=== PATIENT | male | born 1995 | race Two or more races ===

== ENCOUNTER 2020-05-01 14:07 | Outpatient (REF) | payer OTHER, SELFPAY | END 2020-05-01 14:08 | disposition home or self-care (01) | LOC: HO.LAB 14:07 | PROVIDERS: Visit Provider Internal Medicine | DX: Z20.828 Contact with and (suspected) exposure to other viral communicable diseases (principal) | CPT/HCPCS: C9803; U0003 ==

== ENCOUNTER 2020-05-08 12:43 | Emergency (ER) | payer OTHER, SELFPAY ==
[2020-05-08 12:55] VITALS: BP 108/53; BP 116/62; PULSE 88; PULSE 93; RESP 17; TEMP 36.8; O2SAT 95; BMI 24.5
--- NOTE | 2020-05-08 13:02 | XR_ITS ---
EXAMINATION: XR FINGER, RIGHT CLINICAL INFORMATION: Swelling and pain right ring finger. Recent surgery with pinning. COMPARISON: Radiographs right hand and fourth finger 07/02/2010. TECHNIQUE: AP view right hand and 2 views of the right fourth finger are obtained for a total of 3 views. The fingers are superimposed on the lateral view. FINDINGS: There are 2 orthopedic pins longitudinally oriented along the fourth finger proximal phalanx. There is comminuted fracture transversely oriented proximal shaft and a longitudinal fracture medial head/neck. Major fracture fragments are in near-anatomic alignment. There is soft tissue swelling fourth digit. No gas tracking in the soft tissues. The hardware is intact. There is no destructive process or osteolysis or periostitis. There is no dislocation. XR/XR finger RT min 2V IMPRESSION: 1. Status post pinning fourth proximal phalanx comminuted fractures. 2. Soft tissue swelling. No gas in soft tissues. No bony destructive process.
--- NOTE | 2020-05-08 13:35 | ED.GENADULT ---
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 [place]... Adderall patient with similar type behavior on the previous visits. On arrival acting very restless but he is alert and oriented x3. He denies any chest pain, shortness of breath, recent illness, fall or injury. Upon my interview he does show me that he has a surgical area in the right ring finger where he has percutaneous pinning with erythema and slight swelling. He otherwise denies any fever or chills hand swelling or discharge from the area. He reports to me that he had surgery on the finger a week ago at [facility]. Onset (ago): hour(s) Radiation: non-radiation Severity: moderate Treatments prior to arrival: none Related Data Previous Rx's Medication Instructions Recorded sulfamethoxazole-trimethoprim 2 tab PO BID 7 Days #28 tab 05/08/20 [Bactrim DS] Allergies Allergy/AdvReac Type Severity Reaction Status Date / Time No Known Allergies Allergy Unverified 03/14/20 16:27 Review of Systems Review of Systems: Constitutional: No Weight loss, No Fever, No Chills, No Night Sweats, No Fatigue, No Malaise ENT/Mouth: No Hearing loss, No Ear Pain, No Nasal Congestion, No Sinus Pain, No Hoarseness, No sore throat, No Rhinorrhea, No Swallowing Difficulty Eyes: No Eye Pain, No Swelling, No Redness, No Foreign Body, No Discharge, No Vision Changes Cardiovascular: No Chest Pain, No SOB, No Dyspnea on Exertion, No Orthopnea, No Edema, No Palpitations Respiratory: No Cough, No Sputum, No Wheezing, No Smoke Exposure, No Dyspnea Gastrointestinal: No Nausea, No Vomiting, No Diarrhea, No Constipation, No abdominal Pain, No Hematochezia, No Melena Genitourinary: no irregular bleeding, No Dysuria, No Urinary Frequency, No Hematuria, No Urinary Incontinence, No Urgency, No Flank Pain, No Urinary Flow Changes, No Hesitancy Musculoskeletal: No joint pain, No Myalgias, No Joint Swelling Skin: No Skin Lesions, No rash, As noted Neuro: No Weakness, No Numbness, No Paresthesias, No Loss of Consciousness, No Dizziness, No Headache Psych: No Anxiety/Panic, No Depression, No SI/HI/AH/VH, No Social Issues Heme/Lymph: No Bruising, No Bleeding,No Lymphadenopathy Endocrine: No Polyuria, No Polydipsia, No Temperature Intolerance Yes all other systems are reviewed and are negative [facility] Past Medical History Source: old records reviewed ( ) Medical History (Updated 05/08/20 @ 15:36 by Vincent Torres NP) Polysubstance dependence including opioid type drug, continuous use Surgical History Finger fracture, right Social History Social History Advance Directives: No Advance Directives Information Provided: No Physical Exam Vital Signs: Vital Signs: Last Vital Signs Temp 98.2 F 05/08/20 12:55 Pulse 93 05/08/20 12:55 Resp 17 05/08/20 12:55 BP 108/53 L 05/08/20 12:55 Pulse Ox 95 05/08/20 12:55 Body Mass Index 24.5 Reviewed Const: General: cooperative and healthy appearing; No acute distress or intoxicated appearing Nutritional Appearance: average body habitus Orientation/consciousness: patient oriented x3 HENMT: Head: Yes normal to inspection Ears: hearing grossly normal bilaterally Eyes: General: appearance normal, both eyes and all related structures Visual Francis: normal visual francis by confrontation Neck: Neck: Yes normal visual inspection, No positive Brudzinski's sign, No positive Kernig's sign and No tender Thyroid: Thyroid normal Chest: Chest palpation & inspection: normal inspection of the chest Resp: Effort & Inspection: normal respiratory effort Cardio: Jugular venous distension: no JVD GI: Inspection: Yes normal to inspection Percussion: Yes normal to percussion Auscultation: normal bowel sounds : General: Yes no CVA tenderness Back/Spine/Pelvis: Back: no CVA tenderness Skin: Other: slight diaphoretic General skin exam: no rashes or lesions noted Neuro: General: patient oriented x3 Extrem: Other: General: Yes normal to inspection Course Course Course Narrative: records requested from [facility]- there was no records there upon further investigation it appears that patient was seen and evaluated at [facility] on April 21 where he was evaluated for fracture to the right 4th proximal phalanx subsequently on the April 26 he had surgical repair of his right 4th digit proximal phalanx fracture with percutaneous pinning by Dr. Wilson at [facility]. Call placed to [facility] ortho Reevaluation(s) Reevaluation #1: [facility] orthopedics here [facility] covering- given recent surgical case defer to service that performed surgery. Reevaluation #2: [address] Baker [address] Dr. Wilson [facility] ORtho findings reviewed including x-ray findings / labs. Patient has had compliance issues was actually seen on the in the emergency room at [facility] and prescribed Keflex advised to follow up in 2 days has not done so at this point Dr. Baker recommends no transfer to start patient on Bactrim DS 2 tablets b.i.d. clean the percutaneous pin site with Betadine around the pin site and covered with dry sterile dressing with a lumen splint on the palmar aspect and resting position. Follow-up in office tomorrow morning or Wednesday. Reevaluation #3: has been resting comfortably no longer erratically behavior which was upon arrival. Labs show slightly elevated renal function tests he was given a L of fluids. Findings/plan was reviewed with the patient he will be placed on Bactrim as per request of ortho, wound care done to the right 4th finger and placed in a splint with dry sterile dressing. He was advised to follow-up with orthopedics tomorrow and the importance of this and complication of having poor compliance with antibiotics and for follow-up which can lead to not only localized infection and amputation of the digit but systemic infection including but not limited to . Additional Reevaluation(s): PATIENT OBSERVED IN THE ED HAS BEEN CALM COOPERATIVE. GIVEN DOSE OF ANTIBIOTICS HERE. PRESCRIPTION OF BACTRIM SENT TO PHARMACY WELL HE HAS KEFLEX AT HOME HE WILL CONTINUE BOTH OF THESE HE IS STRONGLY ENCOURAGED TO SEE ORTHOPEDICS TOMORROW CALL FOR AN APPOINTMENT. AGAIN COMPLICATIONS OF HAVING WOUND INFECTION AT THE SURGICAL SITE REVIEWED WITH HIM IN DETAIL AND HE VERBALIZED UNDERSTANDING. DECLINED TO SPEAK TO ANYBODY REGARDING DETOX SERVICES. Medical Decision Making Lab Data Result diagrams: 05/08/20 13:49 05/08/20 13:49 Labs: Lab Results 05/08/20 05/08/20 05/08/20 Range/Units 13:47 13:48 13:48 WBC (4.8-10.8) X10*3/uL RBC (4.60-5.80) X10*6/uL Hgb (14.0-18.0) g/dl Hct (42-52) % MCV (80-98) fL MCH (27.0-33.0) pg MCHC (31.0-36.0) g/dl RDW (11.0-16.0) % Plt Count (160-400) X10*3/uL MPV (9.4-12.4) fL Immature Gran % (Auto) (0.0-0.4) % Neut % (Auto) (45-73) % Lymph % (Auto) (20-40) % [place] % (Auto) (2-11) % Eos % (Auto) (0-4) % Baso % (Auto) (0-2) % Lymph # (Auto) (1.2-4.9) X10*3/uL [place] # (Auto) (0.1-1.2) X10*3/uL Eos # (Auto) (0.0-0.4) X10*3/uL Baso # (Auto) (0.0-0.2) X10*3/uL Abs Immat Gran (auto) (0.00-0.03) X10*3/uL Absolute Neuts (auto) (2.0-8.3) X10*3/uL Absolute Nucleated RBC (0.0-0.012) X10*3/uL Nucleated RBC % (auto) (0.0-0.2) /100WBC PT (10.8-13.0) SEC INR (0.9-1.1) APTT (24.1-38.0) SEC Sodium (135-145) mmol/L Potassium (3.3-5.1) mmol/l Chloride (96-108) mmol/L Carbon Dioxide (22-29) mmol/L Anion Gap (12-20) BUN (9-16) mg/dL Creatinine (0.5-1.4) mg/dL Estim Creat Clear Calc Estimated GFR Random Glucose (60-115) mg/dL Lactic Acid 1.1 (0.5-2.0) mmol/L Calcium (8.4-10.2) mg/dL Total Bilirubin (0.0-1.0) mg/dL AST (5-37) U/L ALT (0-40) U/L Alkaline Phosphatase (39-117) U/L Total Protein (6.5-8.0) g/dL Albumin (3.5-5.0) g/dL Urine Color Urine Appearance Urine pH (5.0-8.0) Ur Specific [place] (1.005-1.025) Urine Protein (NEG-TRACE) MG/DL Urine Glucose (UA) (NEG) MG/DL Urine Ketones (NEG) MG/DL Urine Blood (NEG) Urine Nitrite (NEG) Ur Leukocyte Esterase (NEG) Urine RBC (0) /HPF Urine WBC (0-4) /HPF Ur Squamous Epith Cells /LPF Urine Bacteria /LPF Hyaline Casts /LPF Urine Mucus /LPF Urine Opiates Screen Not Detected (Not Detect) Ur Barbiturates Screen Not Detected (Not Detect) Ur Phencyclidine Scrn Not Detected (Not Detect) Ur Amphetamines Screen Not Detected (Not Detect) U Benzodiazepines Scrn Not Detected (Not Detect) Urine Cocaine Screen Not Detected (Not Detect) U Marijuana (THC) Screen POSITIVE H (Not Detect) Ethyl Alcohol < 10 mg/dL 05/08/20 05/08/20 05/08/20 Range/Units 13:49 13:49 13:49 WBC 9.9 (4.8-10.8) X10*3/uL RBC 4.37 L (4.60-5.80) X10*6/uL Hgb 12.9 L (14.0-18.0) g/dl Hct 38.4 L (42-52) % MCV 87.9 (80-98) fL MCH 29.5 (27.0-33.0) pg MCHC 33.6 (31.0-36.0) g/dl RDW 11.9 (11.0-16.0) % Plt Count 261 (160-400) X10*3/uL MPV 9.9 (9.4-12.4) fL Immature Gran % (Auto) 0.3 (0.0-0.4) % Neut % (Auto) 74.7 H (45-73) % Lymph % (Auto) 18.6 L (20-40) % [place] % (Auto) 5.6 (2-11) % Eos % (Auto) 0.3 (0-4) % Baso % (Auto) 0.5 (0-2) % Lymph # (Auto) 1.9 (1.2-4.9) X10*3/uL [place] # (Auto) 0.6 (0.1-1.2) X10*3/uL Eos # (Auto) 0.0 (0.0-0.4) X10*3/uL Baso # (Auto) 0.1 (0.0-0.2) X10*3/uL Abs Immat Gran (auto) 0.03 (0.00-0.03) X10*3/uL Absolute Neuts (auto) 7.4 (2.0-8.3) X10*3/uL Absolute Nucleated RBC 0.000 (0.0-0.012) X10*3/uL Nucleated RBC % (auto) 0.0 (0.0-0.2) /100WBC PT 14.8 H (10.8-13.0) SEC INR 1.2 H (0.9-1.1) APTT 30.0 (24.1-38.0) SEC Sodium 136 (135-145) mmol/L Potassium 4.2 (3.3-5.1) mmol/l Chloride 99 (96-108) mmol/L Carbon Dioxide 23 (22-29) mmol/L Anion Gap 18 (12-20) BUN 22 H (9-16) mg/dL Creatinine 1.44 H (0.5-1.4) mg/dL Estim Creat Clear Calc 82.7 Estimated GFR 59 Random Glucose 87 (60-115) mg/dL Lactic Acid (0.5-2.0) mmol/L Calcium 9.0 (8.4-10.2) mg/dL Total Bilirubin 0.6 (0.0-1.0) mg/dL AST 33 (5-37) U/L ALT 18 (0-40) U/L Alkaline Phosphatase 67 (39-117) U/L Total Protein 7.4 (6.5-8.0) g/dL Albumin 4.6 (3.5-5.0) g/dL Urine Color Urine Appearance Urine pH (5.0-8.0) Ur Specific [place] (1.005-1.025) Urine Protein (NEG-TRACE) MG/DL Urine Glucose (UA) (NEG) MG/DL Urine Ketones (NEG) MG/DL Urine Blood (NEG) Urine Nitrite (NEG) Ur Leukocyte Esterase (NEG) Urine RBC (0) /HPF Urine WBC (0-4) /HPF Ur Squamous Epith Cells /LPF Urine Bacteria /LPF Hyaline Casts /LPF Urine Mucus /LPF Urine Opiates Screen (Not Detect) Ur Barbiturates Screen (Not Detect) Ur Phencyclidine Scrn (Not Detect) Ur Amphetamines Screen (Not Detect) U Benzodiazepines Scrn (Not Detect) Urine Cocaine Screen (Not Detect) U Marijuana (THC) Screen (Not Detect) Ethyl Alcohol mg/dL 05/08/20 Range/Units 13:50 WBC (4.8-10.8) X10*3/uL RBC (4.60-5.80) X10*6/uL Hgb (14.0-18.0) g/dl Hct (42-52) % MCV (80-98) fL MCH (27.0-33.0) pg MCHC (31.0-36.0) g/dl RDW (11.0-16.0) % Plt Count (160-400) X10*3/uL MPV (9.4-12.4) fL Immature Gran % (Auto) (0.0-0.4) % Neut % (Auto) (45-73) % Lymph % (Auto) (20-40) % [place] % (Auto) (2-11) % Eos % (Auto) (0-4) % Baso % (Auto) (0-2) % Lymph # (Auto) (1.2-4.9) X10*3/uL [place] # (Auto) (0.1-1.2) X10*3/uL Eos # (Auto) (0.0-0.4) X10*3/uL Baso # (Auto) (0.0-0.2) X10*3/uL Abs Immat Gran (auto) (0.00-0.03) X10*3/uL Absolute Neuts (auto) (2.0-8.3) X10*3/uL Absolute Nucleated RBC (0.0-0.012) X10*3/uL Nucleated RBC % (auto) (0.0-0.2) /100WBC PT (10.8-13.0) SEC INR (0.9-1.1) APTT (24.1-38.0) SEC Sodium (135-145) mmol/L Potassium (3.3-5.1) mmol/l Chloride (96-108) mmol/L Carbon Dioxide (22-29) mmol/L Anion Gap (12-20) BUN (9-16) mg/dL Creatinine (0.5-1.4) mg/dL Estim Creat Clear Calc Estimated GFR Random Glucose (60-115) mg/dL Lactic Acid (0.5-2.0) mmol/L Calcium (8.4-10.2) mg/dL Total Bilirubin (0.0-1.0) mg/dL AST (5-37) U/L ALT (0-40) U/L Alkaline Phosphatase (39-117) U/L Total Protein (6.5-8.0) g/dL Albumin (3.5-5.0) g/dL Urine Color YELLOW Urine Appearance CLEAR Urine pH 5.5 (5.0-8.0) Ur Specific [place] >= 1.030 H (1.005-1.025) Urine Protein NEG (NEG-TRACE) MG/DL Urine Glucose (UA) NEG (NEG) MG/DL Urine Ketones 15 (NEG) MG/DL Urine Blood TRACE (NEG) Urine Nitrite NEG (NEG) Ur Leukocyte Esterase NEG (NEG) Urine RBC 0-2 (0) /HPF Urine WBC 0-2 (0-4) /HPF Ur Squamous Epith Cells NONE /LPF Urine Bacteria NONE /LPF Hyaline Casts 0-2 /LPF Urine Mucus TRACE /LPF Urine Opiates Screen (Not Detect) Ur Barbiturates Screen (Not Detect) Ur Phencyclidine Scrn (Not Detect) Ur Amphetamines Screen (Not Detect) U Benzodiazepines Scrn (Not Detect) Urine Cocaine Screen (Not Detect) U Marijuana (THC) Screen (Not Detect) Ethyl Alcohol mg/dL Imaging Data Hand xray : Radiologist's impression: [id number] [place] [address] XRay Report Signed Patient: Anuj AbarcaMR#: [id number] : 1995Acct:[id number] Age/Sex: 24 / MADM Date: 05/08/20 Loc: HO.ED Attending Dr: Ordering Physician: Vincent Torres NP Date of Service: 05/08/20 Procedure(s): XR finger RT min 2V Accession Number(s): [id number] cc: Vincent Torres [employer]~ EXAMINATION: XR FINGER, RIGHT CLINICAL INFORMATION: Swelling and pain right ring finger. Recent surgery with pinning. COMPARISON: Radiographs right hand and fourth finger 07/02/2010. TECHNIQUE: AP view right hand and 2 views of the right fourth finger are obtained for a total of 3 views. The fingers are superimposed on the lateral view. FINDINGS: There are 2 orthopedic pins longitudinally oriented along the fourth finger proximal phalanx. There is comminuted fracture transversely oriented proximal shaft and a longitudinal fracture medial head/neck. Major fracture fragments are in near-anatomic alignment. There is soft tissue swelling fourth digit. No gas tracking in the soft tissues. The hardware is intact. There is no destructive process or osteolysis or periostitis. There is no dislocation. XR/XR finger RT min 2V IMPRESSION: 1. Status post pinning fourth proximal phalanx comminuted fractures. 2. Soft tissue swelling. No gas in soft tissues. No bony destructive process. Dictated By:THU PANCHAL MD Signed By:<Electronically signed by THU PANCHAL MD in OV>05/08/20 1351 DD/ 1302 TD/TT: [place] [employer] [place]: ROONE[place] Discharge Plan Discharge Clinical Impression: Polysubstance dependence including opioid type drug, continuous use Infection of superficial incisional surgical site after procedure Qualifiers: Encounter type: initial encounter Qualified Code(s): T81.41XA - Infection following a procedure, superficial incisional surgical site, initial encounter Patient Disposition: Home, Self-Care Instructions: Surgical Site Infections (ED), Polysubstance Abuse (ED) Additional Instructions: please stop using illicit drugs as this can cause serious harm to health including but not limited to As it relates to your right 4th finger you have an infection at the surgical site- please take your antibiotic as prescribed Keep site clean and dry worry splint as provided Please go see orthopedic doctors at [facility] tomorrow call for an appointment with Dr. Baker return if any concerns or worsening symptoms Thank you ++++CALL FOR FOLLOW UP TOMORROW+++ [facility] Dr. Baker [facility] Prescriptions: New sulfamethoxazole-trimethoprim [Bactrim DS] 800-160 mg tablet 2 tab PO BID 7 Days Qty: 28 RF: 0 Referrals: Edmond Dey MD [Primary Care Provider] - 3 days
[2020-05-08] MEDS: 0.9 % Sodium Chloride 1,000 ML 1000 ML IV (13:52)
[2020-05-08 13:55] LABS: MANUAL DIFF FLAG NO
[2020-05-08 13:57] LABS: Basophils Absolute Auto 0.1 X10*3/uL (0.0-0.2); Basophils Percent Auto 0.5 % (0-2); Eosinophils Percent Auto 0.3 % (0-4); Hematocrit 38.4 % (42-52); Hemoglobin 12.9 g/dl (14.0-18.0); Imm Gran Abs Auto 0.03 X10*3/uL (0.00-0.03); Imm Gran Pct Auto 0.3 % (0.0-0.4); Lymphocytes Absolute Auto 1.9 X10*3/uL (1.2-4.9); Lymphocytes Percent Auto 18.6 % (20-40); Mean Corpuscular HGB Conc 33.6 g/dl (31.0-36.0); Mean Corpuscular Hemoglobin 29.5 pg (27.0-33.0); Mean Corpuscular Volume 87.9 fL (80-98); Mean Platelet Volume 9.9 fL (9.4-12.4); Monocytes Absolute Auto 0.6 X10*3/uL (0.1-1.2); Monocytes Percent Auto 5.6 % (2-11); Neutrophils Absolute Auto 7.4 X10*3/uL (2.0-8.3); Neutrophils Percent Auto 74.7 % (45-73); Platelet Count 261 X10*3/uL (160-400); Red Blood Count 4.37 X10*6/uL (4.60-5.80); Red Cell Distribution Width 11.9 % (11.0-16.0); White Blood Count 9.9 X10*3/uL (4.8-10.8)
[2020-05-08 14:00] LABS: Glucose Urine UA NEG (NEG); Leukocyte Esterase Urine NEG (NEG); Nitrite Urine NEG (NEG); PH 5.5 (5.0-8.0); Specific Gravity - Urine >= 1.030 (1.005-1.025); Urine Blood TRACE (NEG); Urine Ketones 15 MG/DL (NEG); Urine Protein NEG (NEG-TRACE)
[2020-05-08 14:01] LABS: Appearance Urine CLEAR; Color Urine YELLOW
[2020-05-08 14:02] LABS: INTERNATIONAL NORM RATIO 1.2 (0.9-1.1); Prothrombin Time 14.8 SEC (10.8-13.0)
[2020-05-08 14:14] LABS: Hyaline Casts Urine 0-2 /LPF; Mucus Urine TRACE /LPF; RBC Urine 0-2 /HPF (0); WBC Urine 0-2 /HPF (0-4)
[2020-05-08 14:22] LABS: Lactic Acid 1.1 mmol/L (0.5-2.0)
[2020-05-08 14:26] LABS: Ethanol < 10 mg/dL
[2020-05-08 14:29] LABS: Amphetamine Screen Urine Not Detected (Not Detect); Barbiturates, Urine Not Detected (Not Detect); Benzodiazepines Screen Urine Not Detected (Not Detect); Cannabinoid Screen Urine POSITIVE (Not Detect); Cocaine Screen Urine Not Detected (Not Detect); Opiate Screen Urine Not Detected (Not Detect); Phencyclidine Screen Urine Not Detected (Not Detect)
[2020-05-08 14:29] LABS: Alanine Aminotransferase 18 U/L (0-40); Albumin Level 4.6 g/dL (3.5-5.0); Alkaline Phosphatase 67 U/L (39-117); Anion Gap 18 (12-20); Aspartate Amino Transferase 33 U/L (5-37); Bilirubin Total 0.6 mg/dL (0.0-1.0); Blood Urea Nitrogen 22 mg/dL (9-16); Carbon Dioxide 23 mmol/L (22-29); Chloride 99 mmol/L (96-108); Creatinine Clr Calc Pharmacy 82.7; Estimated Glomerular Filt Rate 59; Glucose Random 87 mg/dL (60-115); Potassium 4.2 mmol/l (3.3-5.1); Sodium 136 mmol/L (135-145); Total Protein 7.4 g/dL (6.5-8.0)
[2020-05-08] MEDS: cephALEXin 500 MG CAPSULE PO (14:44)
--- NOTE | 2020-05-08 15:01 | MHC.CARE ---
Recovery Support note: Patient is a 24 year old German speaking male who presented to [facility] ED via EMS under the influence of substances, patient reports taking Xanax, weed and Percocet. Patient denies regular drug use, states that he only uses marijuana regularly. Patient reports that he took these pills due to anxiety and pain related to a finger injury. Discussed with patient the danger inherent in buying drugs off the street from people he does not trust. Patient acknowledged. Patient was encouraged to present to the emergency room if he ever feels he needs medications for an injury.
[2020-05-08 15:31] VITALS: BP 106/53; PULSE 89; RESP 18; O2SAT 95
== END 2020-05-08 15:50 | disposition home or self-care (01) ==
PROVIDERS: Nurse Practitioner Primary Care; Emergency Provider Emergency Medicine; PCP Internal Medicine
DX: M79.644 Pain in right finger(s) (principal); T81.41XA Infection following a procedure, superficial incisional surgical site, initial encounter; X58.XXXA Exposure to other specified factors, initial encounter; F11.10 Opioid abuse, uncomplicated; F14.10 Cocaine abuse, uncomplicated; Z79.899 Other long term (current) drug therapy
CPT/HCPCS: 36415; 73140; 80053; 80307; 80320; 81001; 83605; 85025; 85610; 85730; 87040; 96360; 99283; 99284

== ENCOUNTER 2020-08-29 11:25 | Emergency (ER) | payer OTHER, SELFPAY ==
--- NOTE | 2020-08-29 11:27 | ED_ITS ---
HPI - Psych General Chief Complaint: Psychiatric Symptoms Stated Complaint: PSYCH S/P DRUG USE W/ABD PAIN Time Seen by Provider: 08/29/20 11:26 Source: patient and EMS Mode of arrival: EMS Limitations: other (appears under the influence) History of Present Illness HPI Narrative: was in PC all night after using drugs - he is being very vague he told EMS that he used a speedball but denies this to me - asking for ice water and a place to sleep was in PC overnight then went to [employer] - EMS called as he was very antsy walking around and throwing up in trash cans Related Data Previous Rx's Medication Instructions Recorded sulfamethoxazole-trimethoprim 2 tab PO BID 7 Days #28 tab 05/08/20 [Bactrim DS] Allergies Allergy/AdvReac Type Severity Reaction Status Date / Time No Known Allergies Allergy Unverified 03/14/20 16:27 Review of Systems Review of Systems: Constitutional : No Fever, No Chills ENT/Mouth : No Ear Pain, No Nasal Congestion, No sore throat Eyes: No Eye Pain, No Swelling, No Redness Cardiovascular : No Chest Pain, No SOB Respiratory : No Cough, No Sputum, No Dyspnea Gastrointestinal : No Nausea, pos Vomiting, No Diarrhea, No Hematochezia, No Melena Genitourinary : No Dysuria, No Urinary Frequency, No Hematuria Musculoskeletal : No Myalgias Skin : No Skin Lesions, No rash Neuro : No Weakness, No Numbness, No Paresthesias, No Dizziness, No Headache Psych : positive Anxiety, no Depression, no SI/HI Heme/Lymph: No Lymphadenopathy Endocrine : No Polyuria, No Polydipsia All other systems reviewed and are negative [facility] Past Medical History Medical History Polysubstance dependence including opioid type drug, continuous use Surgical History Finger fracture, right Social History Social History (Updated 08/29/20 @ 11:42 by Ida Sargent DO) Smoking Status: Current some day smoker Substance Use Type: Crack/Cocaine and Opiates Advance Directives: No Advance Directives Information Provided: No Physical Exam Vital Signs: Vital Signs: Last Vital Signs Temp 98.4 F 08/29/20 11:53 Pulse 110 H 08/29/20 11:53 Resp 18 08/29/20 12:33 BP 154/83 H 08/29/20 11:53 Pulse Ox 96 08/29/20 11:53 Body Mass Index 24.1 Appearance:Oriented X3. Anxious appears somnolent at times. No acute d istress. walking around scratching nose Eyes: Pupils equal, round and reactive to light. 4mm dilated ENT: Pharynx normal. Neck: Normal inspection. Neck supple. CVS: tachycardic heart rate and rhythm. Pulses normal. Respiratory: No respiratory distress. Breath sounds normal. Abdomen: Soft and nontender. Skin: Skin warm and dry. Normal skin color. Normal skin turgor. Extremities: No lower extremity edema. No calf ttp Neuro: Oriented X 3. No motor deficit. No sensory deficit. Psych: very anxious, restless, walking around, sniffing scratching nose, no SI/HI can I just sleep somewhere for a little bit to get my energy up? I was in PC for the last 9 hours. Course Course Course Narrative: no SI/HI, does not want any services, no need for narcan in 2.5 hours at this time he asking to leave, alert and oriented x 3, steady gait MDM - Psych Lab Data Result diagrams: 08/29/20 12:41 08/29/20 12:41 Labs: Lab Results 08/29/20 08/29/20 08/29/20 Range/Units 12:40 12:41 12:41 WBC 11.9 H (4.8-10.8) X10*3/uL RBC 4.87 (4.60-5.80) X10*6/uL Hgb 14.3 (14.0-18.0) g/dl Hct 41.8 L (42-52) % MCV 85.8 (80-98) fL MCH 29.4 (27.0-33.0) pg MCHC 34.2 (31.0-36.0) g/dl RDW 12.0 (11.0-16.0) % Plt Count 238 (160-400) X10*3/uL MPV 10.1 (9.4-12.4) fL Immature Gran % (Auto) 0.3 (0.0-0.4) % Neut % (Auto) 80.8 H (45-73) % Lymph % (Auto) 12.1 L (20-40) % Gray % (Auto) 6.3 (2-11) % Eos % (Auto) 0.2 (0-4) % Baso % (Auto) 0.3 (0-2) % Lymph # (Auto) 1.4 (1.2-4.9) X10*3/uL Gray # (Auto) 0.8 (0.1-1.2) X10*3/uL Eos # (Auto) 0.0 (0.0-0.4) X10*3/uL Baso # (Auto) 0.0 (0.0-0.2) X10*3/uL Abs Immat Gran (auto) 0.04 H (0.00-0.03) X10*3/uL Absolute Neuts (auto) 9.6 H (2.0-8.3) X10*3/uL Absolute Nucleated RBC 0.000 (0.0-0.012) X10*3/uL Nucleated RBC % (auto) 0.0 (0.0-0.2) /100WBC Sodium 139 (135-145) mmol/L Potassium 3.6 (3.3-5.1) mmol/L Chloride 97 (96-108) mmol/L Carbon Dioxide 27 (22-29) mmol/L Anion Gap 19 (12-20) BUN 16 (9-16) mg/dL Creatinine 1.15 (0.5-1.4) mg/dL Estim Creat Clear Calc 103.6 Estimated GFR > 60 Random Glucose 76 (60-115) mg/dL Calcium 9.9 D (8.4-10.2) mg/dL Total Bilirubin 1.2 H (0.0-1.0) mg/dL Direct Bilirubin 0.5 (0.0-0.5) mg/dL AST 46 H (5-37) U/L ALT 23 (0-40) U/L Alkaline Phosphatase 68 (39-117) U/L Total Protein 8.2 H (6.5-8.0) g/dL Albumin 5.2 H (3.5-5.0) g/dL Ethyl Alcohol mg/dL COVID-19 (ANUPAM) Negative (Negative) COVID-19 Clin Com See Note 08/29/20 Range/Units 12:41 WBC (4.8-10.8) X10*3/uL RBC (4.60-5.80) X10*6/uL Hgb (14.0-18.0) g/dl Hct (42-52) % MCV (80-98) fL MCH (27.0-33.0) pg MCHC (31.0-36.0) g/dl RDW (11.0-16.0) % Plt Count (160-400) X10*3/uL MPV (9.4-12.4) fL Immature Gran % (Auto) (0.0-0.4) % Neut % (Auto) (45-73) % Lymph % (Auto) (20-40) % [place] % (Auto) (2-11) % Eos % (Auto) (0-4) % Baso % (Auto) (0-2) % Lymph # (Auto) (1.2-4.9) X10*3/uL Gray # (Auto) (0.1-1.2) X10*3/uL Eos # (Auto) (0.0-0.4) X10*3/uL Baso # (Auto) (0.0-0.2) X10*3/uL Abs Immat Gran (auto) (0.00-0.03) X10*3/uL Absolute Neuts (auto) (2.0-8.3) X10*3/uL Absolute Nucleated RBC (0.0-0.012) X10*3/uL Nucleated RBC % (auto) (0.0-0.2) /100WBC Sodium (135-145) mmol/L Potassium (3.3-5.1) mmol/L Chloride (96-108) mmol/L Carbon Dioxide (22-29) mmol/L Anion Gap (12-20) BUN (9-16) mg/dL Creatinine (0.5-1.4) mg/dL Estim Creat Clear Calc Estimated GFR Random Glucose (60-115) mg/dL Calcium (8.4-10.2) mg/dL Total Bilirubin (0.0-1.0) mg/dL Direct Bilirubin (0.0-0.5) mg/dL AST (5-37) U/L ALT (0-40) U/L Alkaline Phosphatase (39-117) U/L Total Protein (6.5-8.0) g/dL Albumin (3.5-5.0) g/dL Ethyl Alcohol < 10 mg/dL COVID-19 (ANUPAM) (Negative) COVID-19 Clin Com Discharge Plan Discharge Clinical Impression: Polysubstance dependence including opioid type drug, continuous use, Acute anxiety Patient Disposition: Home, Self-Care Instructions: Polysubstance Abuse (ED), Anxiety (ED) Additional Instructions: return to ED for any worsening symptoms or concerns Prescriptions: No Action sulfamethoxazole-trimethoprim [Bactrim DS] 800-160 mg tablet 2 tab PO BID 7 Days Qty: 28 RF: 0
[2020-08-29 11:53] VITALS: BP 154/83; PULSE 110; RESP 16; TEMP 36.9; O2SAT 96; BMI 24.1
[2020-08-29 12:33] VITALS: RESP 18
[2020-08-29 12:47] LABS: MANUAL DIFF FLAG NO
[2020-08-29 12:50] LABS: Basophils Percent Auto 0.3 % (0-2); Eosinophils Percent Auto 0.2 % (0-4); Hematocrit 41.8 % (42-52); Hemoglobin 14.3 g/dl (14.0-18.0); Imm Gran Abs Auto 0.04 X10*3/uL (0.00-0.03); Imm Gran Pct Auto 0.3 % (0.0-0.4); Lymphocytes Absolute Auto 1.4 X10*3/uL (1.2-4.9); Lymphocytes Percent Auto 12.1 % (20-40); Mean Corpuscular HGB Conc 34.2 g/dl (31.0-36.0); Mean Corpuscular Hemoglobin 29.4 pg (27.0-33.0); Mean Corpuscular Volume 85.8 fL (80-98); Mean Platelet Volume 10.1 fL (9.4-12.4); Monocytes Absolute Auto 0.8 X10*3/uL (0.1-1.2); Monocytes Percent Auto 6.3 % (2-11); Neutrophils Absolute Auto 9.6 X10*3/uL (2.0-8.3); Neutrophils Percent Auto 80.8 % (45-73); Platelet Count 238 X10*3/uL (160-400); Red Blood Count 4.87 X10*6/uL (4.60-5.80); White Blood Count 11.9 X10*3/uL (4.8-10.8)
[2020-08-29 13:15] LABS: Ethanol < 10 mg/dL
[2020-08-29 13:19] LABS: Alanine Aminotransferase 23 U/L (0-40); Albumin Level 5.2 g/dL (3.5-5.0); Alkaline Phosphatase 68 U/L (39-117); Anion Gap 19 (12-20); Aspartate Amino Transferase 46 U/L (5-37); Bilirubin Direct 0.5 mg/dL (0.0-0.5); Bilirubin Total 1.2 mg/dL (0.0-1.0); Blood Urea Nitrogen 16 mg/dL (9-16); Calcium 9.9 mg/dL (8.4-10.2); Carbon Dioxide 27 mmol/L (22-29); Chloride 97 mmol/L (96-108); Creatinine Clr Calc Pharmacy 103.6; Estimated Glomerular Filt Rate > 60; Glucose Random 76 mg/dL (60-115); Potassium 3.6 mmol/L (3.3-5.1); Sodium 139 mmol/L (135-145); Total Protein 8.2 g/dL (6.5-8.0)
--- NOTE | 2020-08-29 13:25 | PC.NURSE ---
JERKY MOVEMENTS ONGOING, PT HAS BEEN ALERT SINCE ARRIVAL, CONVERSING WITH STAFF.
[2020-08-29 13:29] LABS: COVID-19 Test Negative (Negative); IDNOW Serial# 9DD0AD1C
== END 2020-08-29 14:00 | disposition home or self-care (01) ==
PROVIDERS: Emergency Provider Emergency Medicine; PCP Internal Medicine
DX: F11.20 Opioid dependence, uncomplicated (principal); F19.20 Other psychoactive substance dependence, uncomplicated; F41.9 Anxiety disorder, unspecified; F17.200 Nicotine dependence, unspecified, uncomplicated; Z20.822 Contact with and (suspected) exposure to COVID-19
CPT/HCPCS: 36415; 80048; 80076; 80320; 85025; 87635; 99283

== ENCOUNTER 2021-07-16 14:35 | Outpatient (REF) | payer OTHER, SELFPAY ==
[2021-07-16 15:22] LABS: COVID-19 Test Negative (Negative); IDNOW Serial# 16C4AD1C
== END 2021-07-16 14:36 | disposition home or self-care (01) ==
LOC: HO.LAB 14:35
PROVIDERS: Visit Provider Internal Medicine
DX: Z20.822 Contact with and (suspected) exposure to COVID-19 (principal)
CPT/HCPCS: 87635; C9803

== ENCOUNTER 2021-07-30 10:41 | Outpatient (REF) | payer OTHER, SELFPAY ==
[2021-07-30 11:29] LABS: COVID-19 Test Negative (Negative)
== END 2021-07-30 10:42 | disposition home or self-care (01) ==
LOC: HO.LAB 10:41
PROVIDERS: Visit Provider Internal Medicine
DX: Z20.822 Contact with and (suspected) exposure to COVID-19 (principal)
CPT/HCPCS: 87635; C9803

== ENCOUNTER 2022-05-23 17:39 | Emergency (ER) | payer OTHER, SELFPAY ==
--- NOTE | ~2022-05-23 | XR_ITS ---
EXAMINATION: X-RAY CHEST X-RAY ABDOMEN CLINICAL INFORMATION: Inhaled versus swallowed piece of glass. COMPARISON: Chest radiograph 11/10/2010. TECHNIQUE: PA view of the chest AP supine view of the abdomen FINDINGS: Chest radiograph: No unexpected radiopaque foreign bodies. Normal appearance of the cardiomediastinal silhouette. No focal airspace opacity, pleural effusion or pneumothorax. No acute osseous abnormalities. Abdominal radiograph: No unexpected radiopaque foreign bodies. Nonobstructive bowel gas pattern. Mild colonic stool burden. No acute osseous abnormalities. XR/XR chest 1V IMPRESSION: 1. No unexpected radiopaque foreign bodies. 2. No acute cardiopulmonary findings. 3. Nonobstructive bowel gas pattern. 4. Mild colonic stool burden.
--- NOTE | ~2022-05-23 | XR_ITS ---
EXAMINATION: X-RAY CHEST X-RAY ABDOMEN CLINICAL INFORMATION: Inhaled versus swallowed piece of glass. COMPARISON: Chest radiograph 11/10/2010. TECHNIQUE: PA view of the chest AP supine view of the abdomen FINDINGS: Chest radiograph: No unexpected radiopaque foreign bodies. Normal appearance of the cardiomediastinal silhouette. No focal airspace opacity, pleural effusion or pneumothorax. No acute osseous abnormalities. Abdominal radiograph: No unexpected radiopaque foreign bodies. Nonobstructive bowel gas pattern. Mild colonic stool burden. No acute osseous abnormalities. XR/XR KUB IMPRESSION: 1. No unexpected radiopaque foreign bodies. 2. No acute cardiopulmonary findings. 3. Nonobstructive bowel gas pattern. 4. Mild colonic stool burden.
[2022-05-23 17:42] VITALS: BP 152/90; PULSE 105; O2SAT 98
[2022-05-23 17:54] VITALS: BP 145/91; PULSE 94; RESP 18; O2SAT 98; BMI 23.7
[2022-05-23] MEDS: LORazepam 1 MG TABLET PO (17:57)
--- OUTSIDE RECORDS SUMMARY | 2022-05-23 18:05 | XMS_ITS | Continuity of Care Document ---
:1995 Author Organization [facility] Address [address] [place] [address]- Care Team Providers Name Role Phone Edmond Dey MD Primary Care Physician Encounter [facility] Date(s): 09/03/20 - 09/04/[address] [address]- Encounter Diagnosis Ingestion of toxic substance (Final) - 09/03/20 Discharge Disposition: A-D/C Home Attending Physician: Uvaldo Segundo DO Admitting Physician: Uvaldo Segundo DO Referring Physician: Not on Staff, Referring MD Allergies, Adverse Reactions, Alerts Substance Reaction Severity Status NKA Active Medications Narcan 4 mg/0.1 mL nasal spray = 4 mg, Nares, Both, Once, # 2 each, 0 Refills, Soft Stop, 05/09/20 12:12:00 EST, [facility]/pharmacy #[id number], Partial fill upon patient request Start Date: 05/09/20 Status: Orderedondansetron 4 mg oral tablet 1 tablet = 4 mg, By Mouth, Every 8 hours, PRN Nausea & Vomiting, # 20 tablet, 0 Refills, Maintenance, 08/12/13 14:25:30, Tablet Start Date: 08/12/13 Status: OrderedPercocet-5/325 325 mg-5 mg oral tablet 1 tablet, By Mouth, Every 6 hours, PRN Pain, may take 2 tablets per dose, # 12 tablet, 0 Refills, Maintenance, 08/12/13 14:25:28, Tablet Start Date: 08/12/13 Status: Ordered Vital Signs Most recent to oldest 1 2 3 [Reference Range]: Oxygen Saturation [94-100 %] 99 % 98 % 98 % (09/04/20 7:00 AM) (09/04/20 2:33 AM) (09/04/20 12: 30 AM) Pulse Rate [55-90 bpm] 77 bpm 97 bpm 80 bpm (09/04/20 7:00 AM) *H* (09/04/20 12:30 AM) (09/04/20 2:33 AM) Blood Pressure [90-138/55-84 124/57 mm Hg 118/59 mm Hg 111 /58 mm Hg mm Hg] (09/04/20 7:00 AM) (09/04/20 2:33 AM) (09/04/20 12: 30 AM) Respiratory Rate [16-30 14 br/min 18 br/min 18 br/mi n br/min] *L* (09/04/20 2:33 AM) (09/04/20 12:30 AM) (09/04/20 7:00 AM) Temperature [96.8-100.4 DegF] 98.2 DegF 98 DegF (09/04/20 7:00 AM) (09/04/20 12:30 AM) Mode of Delivery (Oxygen) Room air Room air Room a ir (09/04/20 7:00 AM) (09/04/20 2:33 AM) (09/04/20 12: 30 AM) Blood pressure sites Arm, right Arm, right Arm, right (09/04/20 7:00 AM) (09/04/20 2:33 AM) (09/04/20 12: 30 AM) Temperature Route Oral Oral (09/04/20 7:00 AM) (09/04/20 12:30 AM)
--- OUTSIDE RECORDS SUMMARY | 2022-05-23 18:05 | XMS_ITS | Continuity of Care Document ---
:1995 Author Organization [facility] Address [address] [place] [address]- Care Team Providers Name Role Phone Edmond Dye MD Primary Care Physician Encounter [facility] Date(s): 09/04/20 - 09/04/[address] [address]- Encounter Diagnosis Opiate overdose (Final) - 09/04/20 Elevated creatine kinase (Final) - 09/04/20 Discharge Disposition: A-D/C Home Attending Physician: Zack Fisher MD Admitting Physician: Zack Fisher MD Referring Physician: Not on Staff, Referring MD Allergies, Adverse Reactions, Alerts Substance Reaction Severity Status NKA Active Medications Narcan 4 mg/0.1 mL nasal spray = 4 mg, Nares, Both, Once, # 2 each, 0 Refills, Soft Stop, 05/09/20 12:12:00 [facility]/pharmacy #[id number], Partial fill upon patient request Start Date: [...] 3 [Reference Range]: Oxygen Saturation [94-100 %] 97 % 94 % 96 % (09/04/20 2:40 PM) (09/04/20 12:04 PM) (09/04/20 9: 50 AM) Pulse Rate [55-90 bpm] 79 bpm 75 bpm 80 bpm (09/04/20 2:40 PM) (09/04/20 12:04 PM) (09/04/20 9: 50 AM) Blood Pressure [90-138/55-84 126/67 mm Hg 99/60 mm Hg 116 /71 mm Hg mm Hg] (09/04/20 2:40 PM) (09/04/20 12:04 PM) (09/04/20 9: 50 AM) Respiratory Rate [16-30 18 br/min 14 br/min 15 br/mi n br/min] (09/04/20 2:40 PM) *L* *L* (09/04/20 12:04 PM) (09/04/20 9:50 AM) Temperature [96.8-100.4 DegF] 98.5 DegF (09/04/20 9:11 AM) Liters per Minute 4 L/min (09/04/20 9:11 AM) Mode of Delivery (Oxygen) Room air Room air Room a ir (09/04/20 2:40 PM) (09/04/20 12:04 PM) (09/04/20 9: 50 AM) Blood pressure sites Arm, left Arm, left Arm, left (09/04/20 2:40 PM) (09/04/20 12:04 PM) (09/04/20 9: 50 AM) Temperature Route Oral (09/04/20 9:11 AM)
--- NOTE | 2022-05-23 18:31 | ED.SKABFB ---
HPI - Skin/Abscess/Foreign Bdy General Chief complaint: Skin/Abscess/Foreign Body Stated complaint: foreign body swallowed Time Seen by Provider: 05/23/22 17:42 Source: patient and EMS Mode of arrival: EMS Limitations: no limitations History of Present Illness HPI narrative: 26-year-old male presents to the ER for evaluation of foreign body ingestion. He states just prior to arrival when he was willing a joint he accidentally put a piece of small glass from a broken cup into his joint and inhaled it. After he inhaled he felt it go down the back of his throat and he had no choice but to swallow it. He ruled what could happen to him and found that could be a result so he started to panic and called 911. He started feeling lightheaded and dizzy. He states his legs felt tingly. complaint: foreign body Onset (ago): minute(s) Relieving factors: none Exacerbating factors: none Context: other (Smoking marijuana) Associated symptoms: denies other symptoms Treatments prior to arrival: none Related Data Previous Rx's Medication Instructions Recorded sulfamethoxazole 800 2 tab PO BID 7 days #28 tabs 05/08/20 mg-trimethoprim 160 mg tablet (Bactrim DS) Allergies Allergy/AdvReac Type Severity Reaction Status Date / Time No Known Allergies Allergy Verified 05/23/22 17:57 Review of Systems Review of Systems: Constitutional: No Fever, No Chills ENT/Mouth: No sore throat, No Rhinorrhea, No Swallowing Difficulty Cardiovascular: No Chest Pain, No SOB Respiratory: No Cough, No Sputum, No Wheezing, No dyspnea Gastrointestinal: No Nausea, No Vomiting, No Diarrhea, No abdominal Pain Genitourinary: No Hematuria Musculoskeletal: No joint pain, No Myalgias Skin: No Skin Lesions, No rash Neuro: No Weakness, No Numbness, No Dizziness, No Headache Psych: + Anxiety/Panic Heme/Lymph: No Bruising PMFSH Past Medical History Medical History Polysubstance dependence including opioid type drug, continuous use Surgical History Finger fracture, right Social History Social History (Updated 08/29/20 @ 11:42 by Ivana Sargent DO) Substance Use Type: Crack/Cocaine and Opiates Advance Directives: No Advance Directives Information Provided: Yes Physical Exam Vital Signs: Vital Signs: Last Vital Signs Pulse 94 05/23/22 17:54 Resp 18 05/23/22 17:54 BP 145/91 H 05/23/22 17:54 Pulse Ox 98 05/23/22 17:54 O2 Del Method 05/23/22 17:54 BMI result Body Mass Index 23.7 Appearance: Alert. Oriented X3. No acute distress. Eyes: Pupils equal, round and reactive to light. ENT: Pharynx normal. No oral lesions, no oral bleeding. Neck: Normal inspection. Neck supple. CVS: Normal heart rate and rhythm. Pulses normal. Respiratory: No respiratory distress. Breath sounds normal. Abdomen: Soft and nontender. +BS x4 Skin: Skin warm and dry. Normal skin color. Normal skin turgor. No rashes. Extremities: No lower extremity edema. Neuro: Oriented X 3. Grossly normal, nonfocal Course Course Course Narrative: 26-year-old male presents to the ER for evaluation of foreign body ingestion. He states he swallowed a small piece of glass when after rolling a joint. He inhaled it and then had no choice but to swallow it. He goes will do the symptoms that could arise from this, he thought he was going to so he called 911. He had tingling in his legs and lightheadedness. Will get x-rays to assess for foreign body ingestion. Ativan ordered for acute anxiety Reevaluation(s) Reevaluation #1: X-rays are negative. Comfortable discharge home with monitoring for any GI bleeding. Stable for DC. Medications Administered Discontinued Medications Generic Name Dose Route Start Last Admin Trade Name Sayra PRN Reason Stop Dose Admin Lorazepam 1 mg 05/23/22 17:43 05/23/22 17:57 Lorazepam 1 Mg Tablet PO 05/23/22 17:44 1 mg ONCE ONE Administration Critical Care Time Critical Care Time Critical Care Time: No Discharge Plan Discharge Clinical Impression: Foreign body ingestion Patient Disposition: Home, Self-Care Instructions: Foreign Body Ingestion (ED) Additional Instructions: Your x-rays today did not show any evidence of glass in your lungs, stomach or GI tract. Monitor for signs of bleeding in your stools. If you develop new or worsening symptoms call 911 or come back to the ER for further evaluation. Prescriptions: No Action sulfamethoxazole-trimethoprim [Bactrim DS] 800-160 mg tablet 2 tab PO BID 7 Days Qty: 28 0RF
== END 2022-05-23 19:04 | disposition home or self-care (01) ==
PROVIDERS: Emergency Provider Emergency Medicine; PCP Internal Medicine
DX: T18.9XXA Foreign body of alimentary tract, part unspecified, initial encounter (principal); X58.XXXA Exposure to other specified factors, initial encounter; F41.9 Anxiety disorder, unspecified; F11.20 Opioid dependence, uncomplicated; F19.20 Other psychoactive substance dependence, uncomplicated
CPT/HCPCS: 71045; 74018; 99282; 99283

== ENCOUNTER 2023-01-25 13:34 | Outpatient (AMB) | payer OTHER, SELFPAY ==
--- NOTE | 2023-01-25 13:37 | MHC.PC.OV ---
Vital Signs 01/25/23 13:39 Height 5 ft 11 in Weight 193 lb 8 oz BMI 27.0 BP 126/70 Blood Pressure Location Lt brachial Position Sitting Pulse 90 Pulse Source Pulse Oximeter Pulse Oximetry (%) 96 Oxygen Delivery Method Room Air Intake Visit Reasons: Anxiety Intake Note: Patient is here to follow up on Anxiety. Complaint of muscle spams Telephoto Engineer Required: No Instrument Technician Apprentice: Not Required per policy Accompanied by: Self / Same As Patient Allergies No Known Allergies Allergy (Verified 01/25/23 13:39) Medication List - Last Reconciled 01/25/23 by Edmond Dey MD bupropion HCl (Wellbutrin SR) 150 mg PO BID Tobacco use date assessed: 01/25/23 Dental Screening Dental Screen Date: 01/25/23 Did you have a dental visit in the last 12 months?: Yes Did you have a dental problem in the last 6 months where you did not have access to dental care?: No Was dental information given to patient?: Patient has dentist HPI Anxiety HPI Details cervical muscle spams the past few weeks [facility] Medical History Polysubstance dependence including opioid type drug, continuous use Surgical History Finger fracture, right Social History (Updated 01/25/23 @ 13:43 by GISELLE Hollingsworth) Housing: House Alcohol intake: current Alcohol intake frequency: a few times a month Patient Tobacco Use Status: Never used Tobacco e-Cigarette/Vaping Use: Never Used Second Hand Smoke Exposure: No Substance Use Type: Crack/Cocaine and Opiates service: No Current occupational status: employed Cognitive needs: No Hearing needs: No Vision needs: No Questionnaire PHQ-9 Over the last 2 weeks, how often have you been bothered by any of the following problems? 1. Little interest or pleasure in doing things: not at all 2. Feeling down, depressed, or hopeless: not at all 3. Trouble falling or staying asleep, or sleeping too much: not at all 4. Feeling tired or having little energy: not at all 5. Poor appetite or overeating: not at all 6. Feeling bad about yourself - or that you are a failure or have let yourself or your family down: not at all 7. Trouble concentrating on things, such as reading the newspaper or watching television: not at all 8. Moving or speaking so slowly that other people could have noticed. Or the opposite - being so fidgety or restless that you have been moving around a lot more than usual: not at all 9. Thoughts that you would be better off or of hurting yourself in some way: not at all Total score: 0 Depression Screening Interpretation: Negative Source: Developed by Drs. Shiva Mars, Mckenzie Don, Ang Ulloa and colleagues, with an educational tran from [employer]. Thrive Questionnaire Date Thrive assessed: 01/25/23 I am a: Patient What is your living situation today?: I have a steady place to live Within the past 12 months, did the food you bought not last and you didn't have the money to get more?: Never true Within the past 12 months, did you worry whether your food would run out before you got money to buy more?: Never true Do you have trouble paying for medicines?: No Do you have trouble getting transportation to medical appointments?: No Do you have trouble paying your heating and electricity bill?: No Do you have trouble taking care of your child, family member or friend?: No Do you have trouble with day-to-day activities such as bathing, preparing meals, shopping, managing finances, etc.?: No Are you currently unemployed and looking for a job?: No Are you interested in more education?: No Currently or been in a relationship where the following occur: no concerns reported AUDIT C Alcohol Use Questionnaire (AUDIT-C) 1. How often do you have a drink containing alcohol?: Never Total Score: 0 NISHANT-7 AMB Questionnaire NISHANT-7 Date NISHANT - 7 assessed: 01/25/23 Feeling nervous, anxious, or on edge: 0 = Not at all Not being able to stop or control worryin = Not at all Worrying too much about different things: 0 = Not at all Trouble relaxin = Not at all Being so restless that it is hard to sit still: 0 = Not at all Becoming easily annoyed or irritable: 0 = Not at all Feeling afraid as if something awful might happen: 0 = Not at all Total NISHANT-7 score (0-4 normal; 5-9 mild; 10-14 moderate; 15-21 severe): 0 Source: Developed by Drs. Shiva Mars, Mckenzie Don, Ang Ulloa and colleagues, with an educational tran from [employer]. Review of Systems Const Denies chills, Denies headache(s) and Denies weight loss ENT Denies headache(s) Card Denies chest pain, Denies syncope, Denies irregular heart rhythm and Denies dyspnea Resp Denies chest congestion, Denies cough and Denies dyspnea GI Denies abdominal pain, Denies change in stool character, Denies nausea and Denies vomiting Musc Denies deformity and Denies joint swelling Neuro Denies syncope and Denies headache(s) Physical exam (Primary Care) Vital Signs: Last Vital Signs Pulse 90 01/25/23 13:39 BP 126/70 01/25/23 13:39 Pulse Ox 96 01/25/23 13:39 Oxygen Delivery Method Room Air 01/25/23 13:39 BMI result Body Mass Index 27.0 Tobacco/Smoking Status: Tobacco use Status Tobacco use date assessed 01/25/23 01/25/23 13:44 Patient Tobacco Use Status Never used Tobacco 01/25/23 13:44 e-Cigarette/Vaping Use Never Used 01/25/23 13:44 PHQ-9: PHQ-9 Score PHQ-9: Total score 0 01/25/23 13:44 Depression Screening Interpretation: Negative Thrive Assessment: Date of Thrive Assessment Date Thrive assessed 01/25/23 01/25/23 13:44 Currently or been in a relationship where the following occur: no concerns reported Const General: cooperative, healthy appearing and no acute distress Orientation/consciousness: oriented to person, oriented to place and oriented to time [facility] Head: Yes normal to inspection, Yes normocephalic and Yes atraumatic Mouth: Normal oral and palatal mucosa present and tongue normal Throat: Yes posterior oropharynx normal and Yes uvula midline Eyes General: appearance normal, both eyes and all related structures Neck Neck: Yes normal visual inspection, Yes full ROM and Yes no lymphadenopathy Thyroid: Thyroid normal Carotids: normal carotid upstroke Chest Chest palpation & inspection: normal inspection of the chest Resp Effort & Inspection: normal respiratory effort and able to speak in complete sentences Auscultation: clear to auscultation bilaterally Cardio Jugular venous distension: no JVD Palpation: normal PMI Rate: regular rate Rhythm: regular rhythm Heart sounds: S1 normal heart sound present and S2 normal heart sound present GI Inspection: Yes normal to inspection Palpation (GI): Soft to palpation and No hepatosplenomegaly present Auscultation: normal bowel sounds General: Yes no CVA tenderness Back/Spine/Pelvis Back: no CVA tenderness Skin General skin exam: no rashes or lesions noted Neuro General: oriented to person, oriented to place and oriented to time Extrem General: Yes normal to inspection and Yes full ROM Assessment and Plan Assessment & Plan (1) Neck pain: Code(s): M54.2 - Cervicalgia Plan: labs Orders: Orders Comprehensive [place]. Panel Fast Today N28.9 - Disorder of kidney and ureter, unspecified Lipid Panel Today E78.5 - Hyperlipidemia, unspecified Thyroid Stimulating Hormone Today E03.9 - Hypothyroidism, unspecified Complete Blood Count Auto Diff Today D64.9 - Anemia, unspecified Medications: Refilled bupropion HCl (Wellbutrin SR) 150 mg PO BID 60 tabs 3RF Coding Level of Care Code Est Pt Level 3 (74524) Diagnoses Neck pain M54.2
[2023-01-25 13:39] VITALS: BP 126/70; PULSE 90; O2SAT 96; BMI 27.0
== END 2023-01-25 13:49 | disposition home or self-care (01) ==
PROVIDERS: PCP Internal Medicine; Visit Provider Internal Medicine
DX: M54.2 Cervicalgia (principal)
CPT/HCPCS: 99213

== ENCOUNTER 2023-07-07 12:46 | Outpatient (AMB) | payer OTHER, SELFPAY ==
[2023-07-07 12:49] VITALS: BP 118/82; PULSE 65; O2SAT 98; BMI 28.0
--- NOTE | 2023-07-07 12:49 | A.OFFPC_ITS ---
Vital Signs 07/07/23 12:49 Height 5 ft 11 in Weight 201 lb BMI 28.0 BP 118/82 Blood Pressure Location Lt brachial Position Sitting Pulse 65 Pulse Source Pulse Oximeter Pulse Oximetry (%) 98 Oxygen Delivery Method Room Air Intake Visit Reasons: PE Environmental Engineering Intern Required: No Professor Criminal Justice: Not Required per policy Accompanied by: Self / Same As Patient Allergies No Known Allergies Allergy (Verified 07/07/23 12:49) Tobacco use date assessed: 07/07/23 Dental Screening Dental Screen Date: 07/07/23 Did you have a dental visit in the last 12 months?: Yes Did you have a dental problem in the last 6 months where you did not have access to dental care?: No Was dental information given to patient?: Patient has dentist HPI PE HPI Details healthy [facility] Medical History Polysubstance dependence including opioid type drug, continuous use Surgical History Finger fracture, right Social History Housing: House Alcohol intake: current Alcohol intake frequency: a few times a month Patient Tobacco Use Status: Never used Tobacco e-Cigarette/Vaping Use: Never Used Second Hand Smoke Exposure: No Substance Use Type: Crack/Cocaine and Opiates service: No Current occupational status: employed Cognitive needs: No Hearing needs: No Vision needs: No Questionnaire Thrive Questionnaire Date Thrive assessed: 07/07/23 I am a: Patient What is your living situation today?: I have a steady place to live Within the past 12 months, did the food you bought not last and you didn't have the money to get more?: Never true Within the past 12 months, did you worry whether your food would run out before you got money to buy more?: Never true Do you have trouble paying for medicines?: No Do you have trouble getting transportation to medical appointments?: No Do you have trouble paying your heating and electricity bill?: No Do you have trouble taking care of your child, family member or friend?: No Do you have trouble with day-to-day activities such as bathing, preparing meals, shopping, managing finances, etc.?: No Are you currently unemployed and looking for a job?: No Are you interested in more education?: No Please select the resources that you would like help with: None AUDIT C Alcohol Use Questionnaire (AUDIT-C) 1. How often do you have a drink containing alcohol?: Never Total Score: 0 NISHANT-7 AMB Questionnaire NISHANT-7 Date NISHANT - 7 assessed: 07/07/23 Feeling nervous, anxious, or on edge: 0 = Not at all Not being able to stop or control worryin = Not at all Worrying too much about different things: 0 = Not at all Trouble relaxin = Not at all Being so restless that it is hard to sit still: 0 = Not at all Becoming easily annoyed or irritable: 0 = Not at all Feeling afraid as if something awful might happen: 0 = Not at all Total NISHANT-7 score (0-4 normal; 5-9 mild; 10-14 moderate; 15-21 severe): 0 Source: Developed by Drs. Shiva Mars, Mckenzie Don, Ang Ulloa and colleagues, with an educational tran from [employer]. Review of Systems Const Denies chills, Denies fatigue, Denies headache(s) and Denies weight loss Eyes Denies change in vision, Denies diplopia and Denies eye pain ENT Denies vertigo, Denies dizziness, Denies headache(s) and Denies nasal discharge Card Denies chest pain, Denies rapid heart rate and Denies dyspnea on exertion Resp Denies chest congestion, Denies cough, Denies pain with cough and Denies dyspnea on exertion GI Denies abdominal pain, Denies hematochezia and Denies change in bowel habits Musc Denies myalgias, Denies arthralgias and Denies joint swelling Skin/Breast Denies lesions and Denies unusual bruising Neuro Denies vertigo, Denies dizziness, Denies headache(s) and Denies focal weakness Endo Denies fatigue Physical exam (Primary Care) Vital Signs: Last Vital Signs Pulse 65 07/07/23 12:49 BP 118/82 07/07/23 12:49 Pulse Ox 98 07/07/23 12:49 Oxygen Delivery Method Room Air 07/07/23 12:49 BMI result Body Mass Index 28.0 Tobacco/Smoking Status: Tobacco use Status Tobacco use date assessed 07/07/23 07/07/23 12:51 Patient Tobacco Use Status Never used Tobacco 07/07/23 12:51 e-Cigarette/Vaping Use Never Used 07/07/23 12:51 Thrive Assessment: Date of Thrive Assessment Date Thrive assessed 07/07/23 07/07/23 12:51 Const General: cooperative, healthy appearing and no acute distress Orientation/consciousness: oriented to person, oriented to place and oriented to time [facility] Head: Yes normal to inspection, Yes normocephalic and Yes atraumatic Mouth: Normal oral and palatal mucosa present and tongue normal Throat: Yes posterior oropharynx normal and Yes uvula midline Eyes General: appearance normal, both eyes and all related structures Neck Neck: Yes normal visual inspection, Yes full ROM and Yes no lymphadenopathy Thyroid: Thyroid normal Carotids: normal carotid upstroke Chest Chest palpation & inspection: normal inspection of the chest Resp Effort & Inspection: normal respiratory effort and able to speak in complete sentences Auscultation: clear to auscultation bilaterally Cardio Jugular venous distension: no JVD Palpation: normal PMI Rate: regular rate Rhythm: regular rhythm Heart sounds: S1 normal heart sound present and S2 normal heart sound present GI Inspection: Yes normal to inspection Palpation (GI): Soft to palpation and No hepatosplenomegaly present Auscultation: normal bowel sounds General: Yes no CVA tenderness Back/Spine/Pelvis Back: no CVA tenderness Skin General skin exam: no rashes or lesions noted Neuro General: oriented to person, oriented to place and oriented to time Extrem General: Yes normal to inspection and Yes full ROM Assessment and Plan Assessment & Plan (1) Physical exam: Code(s): Z00.00 - Encounter for general adult medical examination without abnormal findings Plan: healthy; do labs Orders: Orders Complete Blood Count Auto Diff Today D64.9 - Anemia, unspecified Lipid Panel Today E78.5 - Hyperlipidemia, unspecified Thyroid Stimulating Hormone Today E03.9 - Hypothyroidism, unspecified Comprehensive [place]. Panel Fast Today N28.9 - Disorder of kidney and ureter, unspecified Coding Level of Care Code Est Pt Prev Care 18-39y(42667) Diagnoses Physical exam Z00.00
== END 2023-07-07 13:02 | disposition home or self-care (01) ==
PROVIDERS: PCP Internal Medicine; Visit Provider Internal Medicine
DX: Z00.00 Encounter for general adult medical examination without abnormal findings (principal)
CPT/HCPCS: 99395

== ENCOUNTER 2023-07-08 11:55 | Outpatient (REF) | payer OTHER, SELFPAY ==
[2023-07-08 12:31] LABS: MANUAL DIFF FLAG NO
[2023-07-08 12:50] LABS: Basophils Percent Auto 0.5 % (0-2); Eosinophils Absolute Auto 0.1 X10*3/uL (0.0-0.4); Eosinophils Percent Auto 1.6 % (0-4); Hematocrit 47.9 % (42.0-52.0); Hemoglobin 16.7 g/dl (14.0-18.0); Imm Gran Abs Auto 0.03 X10*3/uL (0.00-0.03); Imm Gran Pct Auto 0.4 % (0.0-0.4); Lymphocytes Absolute Auto 2.6 X10*3/uL (1.2-4.9); Lymphocytes Percent Auto 34.8 % (20-40); Mean Corpuscular HGB Conc 34.9 g/dl (31.0-36.0); Mean Corpuscular Hemoglobin 29.9 pg (27.0-33.0); Mean Corpuscular Volume 85.7 fL (80.0-98.0); Mean Platelet Volume 9.1 fL (9.4-12.4); Monocytes Absolute Auto 0.5 X10*3/uL (0.1-1.2); Monocytes Percent Auto 7.2 % (2-11); Neutrophils Absolute Auto 4.1 x10*3/uL (2.0-8.3); Neutrophils Percent Auto 55.5 % (45-73); Platelet Count 308 X10*3/uL (160-400); Red Blood Count 5.59 X10*6/uL (4.60-5.80); White Blood Count 7.4 X10*3/uL (4.8-10.8)
[2023-07-08 13:17] LABS: Alanine Aminotransferase 41 U/L (0-40); Albumin Level 4.1 g/dL (3.5-5.0); Alkaline Phosphatase 58 U/L (39-117); Anion Gap 12 (12-20); Aspartate Amino Transferase 27 U/L (5-37); Bilirubin Total 0.5 mg/dL (0.0-1.0); Blood Urea Nitrogen 7 mg/dL (9-16); Carbon Dioxide 28 mmol/L (22-29); Chloride 107 mmol/L (96-108); Cholesterol 125 mg/dL (<200); Estimated Glomerular Filt Rate > 60; Glucose Fasting 91 mg/dL (60-99); HDL Cholesterol 37 mg/dL (>40); LDL Cholesterol Calculated 51 mg/dL (<100); Potassium 3.9 mmol/L (3.3-5.1); Sodium 143 mmol/L (135-145); Total Protein 6.8 g/dL (6.5-8.0); Triglycerides 187 mg/dL (<150)
[2023-07-08 13:25] LABS: Thyroid Stimulating Hormone 0.95 uIU/mL (0.32-4.0)
== END 2023-07-08 11:56 | disposition home or self-care (01) ==
LOC: HO.LAB 11:55
PROVIDERS: PCP Internal Medicine; Visit Provider Internal Medicine
DX: E03.9 Hypothyroidism, unspecified (principal); D64.9 Anemia, unspecified; N28.9 Disorder of kidney and ureter, unspecified; E78.5 Hyperlipidemia, unspecified
CPT/HCPCS: 36415; 80053; 80061; 84443; 85025

== ENCOUNTER 2024-03-09 10:26 | Outpatient (AMB) | payer OTHER, SELFPAY ==
[2024-03-09 10:28] VITALS: BP 110/72; PULSE 72; O2SAT 97; BMI 28.2
--- NOTE | 2024-03-09 10:28 | A.OFFPC_ITS ---
Vital Signs 03/09/24 10:28 Height 5 ft 11 in Weight 202 lb BMI 28.2 BP 110/72 Blood Pressure Location Lt brachial Position Sitting Pulse 72 Pulse Source Pulse Oximeter Pulse Oximetry (%) 97 Oxygen Delivery Method Room Air Intake Visit Reasons: Heart Burn/Trouble sleeping Early Breastfeeding Care Specialist Required: No Accompanied by: Self / Same As Patient Allergies No Known Allergies Allergy (Verified 03/09/24 10:32) Tobacco use date assessed: 07/07/23 Dental Screening Dental Screen Date: 07/07/23 HPI Heart Burn/Trouble sleeping HPI Details GERD symptoms for the past week [facility] Medical History Polysubstance dependence including opioid type drug, continuous use Surgical History Finger fracture, right Social History Housing: House Alcohol intake: current Alcohol intake frequency: a few times a month Patient Tobacco Use Status: Never used Tobacco Tobacco use type: Cigarette e-Cigarette/Vaping Use: Never Used Second Hand Smoke Exposure: No Substance Use Type: Crack/Cocaine and Opiates service: No Current occupational status: employed Cognitive needs: No Hearing needs: No Vision needs: No Questionnaire PHQ-9 Over the last 2 weeks, how often have you been bothered by any of the following problems? 1. Little interest or pleasure in doing things: not at all 2. Feeling down, depressed, or hopeless: not at all 3. Trouble falling or staying asleep, or sleeping too much: not at all 4. Feeling tired or having little energy: not at all 5. Poor appetite or overeating: not at all 6. Feeling bad about yourself - or that you are a failure or have let yourself or your family down: not at all 7. Trouble concentrating on things, such as reading the newspaper or watching television: not at all 8. Moving or speaking so slowly that other people could have noticed. Or the opposite - being so fidgety or restless that you have been moving around a lot more than usual: not at all 9. Thoughts that you would be better off or of hurting yourself in some way: not at all Total score: 0 Depression Screening Interpretation: Negative Depression Screening Done: Yes Source: Developed by Drs. Shiva Mars, Mckenzie Don, Ang Ulloa and colleagues, with an educational tran from [employer]. Thrive Questionnaire Date Thrive assessed: 07/07/23 AUDIT C Alcohol Use Questionnaire (AUDIT-C) 1. How often do you have a drink containing alcohol?: Never Total Score: 0 NISHANT-7 AMB Questionnaire NISHANT-7 Date NISHANT - 7 assessed: 07/07/23 Source: Developed by Drs. Shiva Mars, Mckenzie Don, Ang Ulloa and colleagues, with an educational tran from [employer]. Review of Systems Const Denies chills, Denies headache(s) and Denies weight loss ENT Denies headache(s) Card Denies chest pain, Denies syncope, Denies irregular heart rhythm and Denies dyspnea Resp Denies chest congestion, Denies cough and Denies dyspnea GI Denies change in stool character, Denies nausea and Denies vomiting Musc Denies deformity and Denies joint swelling Neuro Denies syncope and Denies headache(s) Physical exam (Primary Care) Vital Signs: Last Vital Signs Pulse 72 03/09/24 10:28 BP 110/72 03/09/24 10:28 Pulse Ox 97 03/09/24 10:28 Oxygen Delivery Method Room Air 03/09/24 10:28 BMI result Body Mass Index 28.2 Tobacco/Smoking Status: Tobacco use Status Tobacco use date assessed 07/07/23 03/09/24 10:32 Patient Tobacco Use Status Never used Tobacco 03/09/24 10:32 Tobacco use type Cigarette 03/09/24 10:32 e-Cigarette/Vaping Use Never Used 03/09/24 10:32 PHQ-9: PHQ-9 Score PHQ-9: Total score 0 03/09/24 10:32 Depression Screening Interpretation: Negative Thrive Assessment: Date of Thrive Assessment Date Thrive assessed 07/07/23 03/09/24 10:32 Const General: cooperative, comfortable, no acute distress and alert Neck Neck: Yes no lymphadenopathy Thyroid: Thyroid normal Resp Effort & Inspection: normal respiratory effort Auscultation: clear to auscultation bilaterally Percussion: percussion normal Cardio Jugular venous distension: no JVD Palpation: normal PMI Rate: regular rate Rhythm: regular rhythm Heart sounds: S1 normal heart sound present and S2 normal heart sound present GI Inspection: Yes normal to inspection Palpation (GI): No hepatosplenomegaly present Skin General skin exam: no rashes or lesions noted Extrem General: Yes no clubbing, cyanosis or edema Assessment and Plan Assessment & Plan (1) GERD (gastroesophageal reflux disease): Code(s): K21.9 - Gastro-esophageal reflux disease without esophagitis Plan: rx sent Medications: New omeprazole 20 mg PO DAILY 90 caps 2RF Coding Level of Care Code Est Pt Level 3 (47540) Diagnoses GERD (gastroesophageal reflux disease) K21.9
== END 2024-03-09 10:36 | disposition home or self-care (01) ==
PROVIDERS: PCP Internal Medicine; Visit Provider Internal Medicine
DX: K21.9 Gastro-esophageal reflux disease without esophagitis (principal)
CPT/HCPCS: 99213

== ENCOUNTER 2024-05-05 10:42 | Outpatient (AMB) | payer OTHER, SELFPAY ==
[2024-05-05 10:44] VITALS: BP 116/72; PULSE 113; O2SAT 97; BMI 28.9
--- NOTE | 2024-05-05 10:44 | MHC.PC.OV ---
Vital Signs 05/05/24 10:44 Height 5 ft 11 in Weight 207 lb BMI 28.9 BP 116/72 Blood Pressure Location Lt brachial Position Sitting Pulse 113 H Pulse Source Pulse Oximeter Pulse Oximetry (%) 97 Oxygen Delivery Method Room Air Intake Visit Reasons: Pain when breathing and coughing Teacher Required: No Accompanied by: Self / Same As Patient Allergies No Known Allergies Allergy (Verified 05/05/24 10:44) Medication List - Last Reconciled 05/08/24 by Edmond Dey MD omeprazole 20 mg PO DAILY Tobacco use date assessed: 07/07/23 Dental Screening Dental Screen Date: 07/07/23 HPI Pain when breathing and coughing HPI Details productive cough for a week PFSH Medical History Polysubstance dependence including opioid type drug, continuous use Surgical History Finger fracture, right Social History Housing: House Alcohol intake: current Alcohol intake frequency: a few times a month Patient Tobacco Use Status: Never used Tobacco Tobacco use type: Cigarette e-Cigarette/Vaping Use: Never Used Second Hand Smoke Exposure: No Substance Use Type: Crack/Cocaine and Opiates service: No Current occupational status: employed Cognitive needs: No Hearing needs: No Vision needs: No Questionnaire Thrive Questionnaire Date Thrive assessed: 07/07/23 NISHANT-7 AMB Questionnaire NISHANT-7 Date NISHANT - 7 assessed: 07/07/23 Source: Developed by Drs. Shiva Mars, Mckenzie Don, Ang Ulloa and colleagues, with an educational tran from [employer]. Review of Systems Const Denies chills, Denies headache(s) and Denies weight loss ENT Denies headache(s) Card Denies chest pain, Denies syncope, Denies irregular heart rhythm and Denies dyspnea Resp Denies dyspnea GI Denies abdominal pain, Denies change in stool character, Denies nausea and Denies vomiting Musc Denies deformity and Denies joint swelling Neuro Denies syncope and Denies headache(s) Physical exam (Primary Care) Vital Signs: Last Vital Signs Pulse 113 H 05/05/24 10:44 BP 116/72 05/05/24 10:44 Pulse Ox 97 05/05/24 10:44 Oxygen Delivery Method Room Air 05/05/24 10:44 BMI result Body Mass Index 28.9 Tobacco/Smoking Status: Tobacco use Status Tobacco use date assessed 07/07/23 05/05/24 10:47 Patient Tobacco Use Status Never used Tobacco 05/05/24 10:47 Tobacco use type Cigarette 05/05/24 10:47 e-Cigarette/Vaping Use Never Used 05/05/24 10:47 Thrive Assessment: Date of Thrive Assessment Date Thrive assessed 07/07/23 05/05/24 10:47 Const General: cooperative, comfortable, no acute distress and alert Neck Neck: Yes no lymphadenopathy Thyroid: Thyroid normal Resp Effort & Inspection: normal respiratory effort Auscultation: clear to auscultation bilaterally Percussion: percussion normal Cardio Jugular venous distension: no JVD Palpation: normal PMI Rate: regular rate Rhythm: regular rhythm Heart sounds: S1 normal heart sound present and S2 normal heart sound present GI Inspection: Yes normal to inspection Palpation (GI): No hepatosplenomegaly present Skin General skin exam: no rashes or lesions noted Extrem General: Yes no clubbing, cyanosis or edema Coding Level of Care Code Est Pt Level 3 (61673) Diagnoses Cough R05.9 Assessment & Plan Assessment & Plan (1) Cough: Code(s): R05.9 - Cough, unspecified Plan: cxr and rx Orders: Orders Basic Metabolic Panel 05/05/24 M62.838 - Other muscle spasm Complete Blood Count Auto Diff 05/05/24 Z13.0 - Encounter for screening for diseases of the blood and blood-forming organs and certain disorders involving the immune mechanism
== END 2024-05-05 10:58 | disposition home or self-care (01) ==
PROVIDERS: PCP Internal Medicine; Visit Provider Internal Medicine
DX: R05.9 Cough, unspecified (principal)

== ENCOUNTER → 2024-05-05 10:42 | Outpatient (BNVA) | payer OTHER, SELFPAY | PROVIDERS: PCP Internal Medicine; Visit Provider Internal Medicine | DX: R05.9 Cough, unspecified (principal); M62.838 Other muscle spasm | CPT/HCPCS: 99212 ==

== ENCOUNTER 2024-11-10 10:20 | Outpatient (AMB) | payer OTHER, SELFPAY ==
[2024-11-10 10:28] VITALS: BP 108/72; PULSE 94; RESP 16; TEMP 37.1; O2SAT 97; BMI 29.2
--- NOTE | 2024-11-10 10:28 | A.OFFPC_ITS ---
Vital Signs 11/10/24 10:28 Height 5 ft 11 in Weight 209 lb 3.2 oz BMI 29.2 BP 108/72 Blood Pressure Location Lt brachial Position Sitting Respiration 16 Pulse 94 Pulse Source Pulse Oximeter Temp 98.8 F Temp Source Oral Pulse Oximetry (%) 97 Oxygen Delivery Method Room Air Intake Visit Reasons: Transfer Care from Dr. Dey Follow Up Inspector Firearms Required: No Accompanied by: Self / Same As Patient Allergies No Known Allergies Allergy (Verified 11/10/24 11:07) Medication List - Last Reconciled 11/10/24 by CHAS Almanzar omeprazole 20 mg PO DAILY Tobacco use date assessed: 11/10/24 Dental Screening Dental Screen Date: 11/10/24 Did you have a dental visit in the last 12 months?: Yes Did you have a dental problem in the last 6 months where you did not have access to dental care?: No Was dental information given to patient?: Patient has dentist HPI Transfer Care from Dr. Dey Follow Up HPI Details The patient is a 28-year-old male presenting for transition of care from Dr. Dey, who retired. Significant past medical history of GERD and the polysubstance dependence including opioids. He states that he had a recent severe headache. He reports experiencing the worst headache he has had, localized to the right side of his head, occurring upon waking, and worsening with upward gaze, coughing, and movement. The headache resolved after 4 days without recurring. The episode was not accompanied by light sensitivity or other neurological symptoms. Headache on right side that lasted for 3 days; mild on the first day, then intensified on the 2nd, he went to urgent care and was instructed to go to the hospital due to his c/o of the worse headache every felt. Declines hospital visit, on the 3rd day, the headache became mild to resolved the day after. No abnormality on exam noted Additionally, the patient has a history of GERD, with heartburn symptoms triggered by spicy foods and pizza. He notes that consuming food close to bedtime aggravates his symptoms. He is effectively managed with omeprazole, yet he ran into issues obtaining a refill after his provider retired. [facility] Medical History Polysubstance dependence including opioid type drug, continuous use Surgical History Finger fracture, right Social History Housing: House Alcohol intake: current Alcohol intake frequency: a few times a month Patient Tobacco Use Status: Never used Tobacco Tobacco use type: Cigarette e-Cigarette/Vaping Use: Never Used Second Hand Smoke Exposure: No Substance Use Type: Crack/Cocaine and Opiates service: No Current occupational status: employed Cognitive needs: No Hearing needs: No Vision needs: No Questionnaire PHQ-9 Over the last 2 weeks, how often have you been bothered by any of the following problems? 1. Little interest or pleasure in doing things: not at all 2. Feeling down, depressed, or hopeless: not at all 3. Trouble falling or staying asleep, or sleeping too much: not at all 4. Feeling tired or having little energy: not at all 5. Poor appetite or overeating: not at all 6. Feeling bad about yourself - or that you are a failure or have let yourself or your family down: not at all 7. Trouble concentrating on things, such as reading the newspaper or watching television: not at all 8. Moving or speaking so slowly that other people could have noticed. Or the opposite - being so fidgety or restless that you have been moving around a lot more than usual: not at all 9. Thoughts that you would be better off or of hurting yourself in some way: not at all Total score: 0 Depression Screening Interpretation: Negative Depression Screening Done: Yes 05882 - PHQ-9 Billing: Yes Source: Developed by Drs. Shiva Mars, Mckenzie Don, Ang Ulloa and colleagues, with an educational tran from [employer]. Thrive Questionnaire Date Thrive assessed: 11/10/24 I am a: Patient What is your living situation today?: I have a steady place to live Within the past 12 months, did the food you bought not last and you didn't have the money to get more?: Never true Within the past 12 months, did you worry whether your food would run out before you got money to buy more?: Never true Do you have trouble paying for medicines?: No Do you have trouble getting transportation to medical appointments?: No Do you have trouble paying your heating and electricity bill?: No Do you have trouble taking care of your child, family member or friend?: No Do you have trouble with day-to-day activities such as bathing, preparing meals, shopping, managing finances, etc.?: No Are you currently unemployed and looking for a job?: Yes Are you interested in more education?: No Please select the resources that you would like help with: None Currently or been in a relationship where the following occur: No concerns reported THRIVE Score: 0 AUDIT C Alcohol Use Questionnaire (AUDIT-C) 1. How often do you have a drink containing alcohol?: 2-4 times a month 2. How many drinks containing alcohol do you have on a typical day when you are drinking?: 3 or 4 3. How often do you have six or more drinks on one occasion?: Never Total Score: 3 Score Reviewed/Action Taken: No NISHANT-7 AMB Questionnaire NISHANT-7 Date NISHANT - 7 assessed: 11/10/24 Feeling nervous, anxious, or on edge: 0 = Not at all Not being able to stop or control worryin = Not at all Worrying too much about different things: 0 = Not at all Trouble relaxin = Not at all Being so restless that it is hard to sit still: 0 = Not at all Becoming easily annoyed or irritable: 0 = Not at all Feeling afraid as if something awful might happen: 0 = Not at all Total NISHANT-7 score (0-4 normal; 5-9 mild; 10-14 moderate; 15-21 severe): 0 Source: Developed by Drs. Shiva Mars, Mckenzie Don, Ang Ulloa and colleagues, with an educational tran from [employer]. NISHANT-7 Assessment Billing NISHANT-7 Assessment Tool: NISHANT-7 Assessment 89760 Review of Systems Const Denies headache(s) Eyes Denies loss of vision ENT Denies vertigo, Denies dizziness, Denies headache(s) and Denies sore throat Card Denies chest pain, Denies leg edema and Denies lightheadedness Resp Denies cough, Denies hemoptysis and Denies wheezing GI Denies abdominal pain, Denies melena, Denies constipation, Reports heartburn (With spicy foods and pizza), Denies diarrhea and Denies vomiting Denies dysuria, Denies urinary frequency and Denies urinary urgency Musc Denies arthralgias, Denies joint swelling, Denies numbness and Denies tingling Neuro Denies Abnormal speech present, Denies behavioral changes, Denies vertigo, Denies dizziness, Denies headache(s), Denies loss of vision, Denies memory loss, Denies numbness and Denies tingling Psych Denies anxiety, Denies behavioral changes, Denies depression, Denies memory loss and Denies panic attacks Mo/Lymph Denies easy bleeding and Denies easy bruising Aller/Immun Denies wheezing Physical exam (Primary Care) Vital Signs: Last Vital Signs Temp 98.8 F 11/10/24 10:28 Pulse 94 11/10/24 10:28 Resp 16 11/10/24 10:28 BP 108/72 11/10/24 10:28 Pulse Ox 97 11/10/24 10:28 Oxygen Delivery Method Room Air 11/10/24 10:28 BMI result Body Mass Index 29.2 Tobacco/Smoking Status: Tobacco use Status Tobacco use date assessed 11/10/24 11/10/24 10:37 Patient Tobacco Use Status Never used Tobacco 11/10/24 10:37 Tobacco use type Cigarette 11/10/24 10:37 e-Cigarette/Vaping Use Never Used 11/10/24 10:37 PHQ-9: PHQ-9 Score PHQ-9: Total score 0 11/10/24 11:22 Depression Screening Interpretation: Negative Thrive Assessment: Date of Thrive Assessment Date Thrive assessed 11/10/24 11/10/24 10:37 Currently or been in a relationship where the following occur: No concerns reported Const General: healthy appearing, no acute distress, alert and awake Nutritional Appearance: well nourished Orientation/consciousness: oriented to person, oriented to place and oriented to time HENMT Ears: TM's normal bilaterally General nose exam: Normal nasal mucous membranes and turbinates present Eyes Conjunctivae: conjunctivae normal Sclerae: sclerae normal Pupils: Equal, round and reactive pupils present Neck Neck: Yes no lymphadenopathy and Yes no JVD Thyroid: Thyroid normal Carotids: no bruits Resp Effort & Inspection: normal respiratory effort and not tachypneic Auscultation: no crackles, no rales, no rhonchi and no wheezes Cardio Rate: regular rate Rhythm: regular rhythm Heart sounds: no murmurs and normal S1 and S2 GI Palpation (GI): Soft to palpation, nontender, no hepatomegaly and no splenomegaly Auscultation: normal bowel sounds Skin General skin exam: no rashes or lesions noted and dry skin Neuro General: oriented to person, oriented to place and oriented to time Cranial nerves: Yes Equal, round and reactive pupils present Speech: No Abnormal speech present Gait exam (Neuro): Normal gait present Motor exam (neuro): no tremor noted Extrem Right upper extremity: full ROM Left upper extremity: full ROM Right lower extremity: full ROM; no edema Left lower extremity: full ROM; no edema Psych Mental Status: mental status grossly normal Speech and movement: Normal speech and movement present Affect: normal affect Attitude: cooperative Thought process: Normal thought process present Coding Level of Care Code Est Pt Level 3 (98452) Diagnoses Gastroesophageal reflux disease, unspecified whether esophagitis present K21.9 Esophagitis presence: esophagitis presence not specified Polysubstance dependence including opioid type drug, continuous use F11.20; F19.20 Nonintractable headache, unspecified chronicity pattern, unspecified headache ty pe R51.9 Headache type: unspecified Headache chronicity pattern: unspecified pattern Intractability: not intractable Additional Codes NISHANT-7 Assessment Billing - NISHANT-7 Assessment Tool: NISHANT-7 Assessment 05984 ([id number]) PHQ-9 - 92646 - PHQ-9 Billing: Yes ([id number]) Time Spent (min) 32 Assessment & Plan Assessment & Plan (1) GERD (gastroesophageal reflux disease): Code(s): K21.9 - Gastro-esophageal reflux disease without esophagitis Category: Medical Qualifiers: Esophagitis presence: esophagitis presence not specified Qualified Code(s): K21.9 - Gastro-esophageal reflux disease without esophagitis Plan: Do not eat meals or drink carbonated beverages within 3 hr of bedtime Decrease the amount of fried, fatty, and spicy foods to decrease gastric acid production Raise the head of the bed using 4 to 6-inch blocks, especially if nocturnal symptoms are present Lose weight if indicated; avoid tight-fitting clothing, especially around the waist Avoid foods that relax the Lower esophageal sphincter (chocolate, peppermint, high-fat foods etc.,) (2) Polysubstance dependence including opioid type drug, continuous use: Code(s): F11.20 - Opioid dependence, uncomplicated; F19.20 - Other psychoactive substance dependence, uncomplicated Category: Medical Plan: Denies current usage. Encouraged sobriety (3) Headache: Code(s): R51.9 - Headache, unspecified Category: Medical Qualifiers: Headache type: unspecified Headache chronicity pattern: unspecified pattern Intractability: not intractable Qualified Code(s): R51.9 - Headache, unspecified Plan: Recent 4 days episode of severe right-sided headache that resolved on its own Plan Comprehensive labs ordered to be completed as a generalized workup. Patient to return in 1 year for his annual physical. Orders: Orders Complete Blood Count Auto Diff 11/10/24 K21.9 - Gastro-esophageal reflux disease without esophagitis, Z00.00 - Encounter for general adult medical examination without abnormal findings Comprehensive [place]. Panel Fast 11/10/24 K21.9 - Gastro-esophageal reflux disease without esophagitis, Z00.00 - Encounter for general adult medical examination without abnormal findings TSH reflex Free T4 11/10/24 K21.9 - Gastro-esophageal reflux disease without esophagitis, Z00.00 - Encounter for general adult medical examination without abnormal findings UA CC w/rflx Micro + Cult 11/10/24 K21.9 - Gastro-esophageal reflux disease without esophagitis, Z00.00 - Encounter for general adult medical examination without abnormal findings Vitamin D 25-OH Total 11/10/24 K21. - Gastro-esophageal reflux disease without esophagitis, Z00.00 - Encounter for general adult medical examination without abnormal findings Glucose Fasting 11/10/24 K21.9 - Gastro-esophageal reflux disease without esophagitis, Z00.00 - Encounter for general adult medical examination without abnormal findings Lipid Panel 11/10/24 K21.9 - Gastro-esophageal reflux disease without esophagitis, Z00.00 - Encounter for general adult medical examination without abnormal findings Medications: Refilled omeprazole 20 mg PO DAILY 90 caps 2RF
== END 2024-11-10 11:26 | disposition home or self-care (01) ==
LOC: HO.HMCH 10:21
DX: K21.9 Gastro-esophageal reflux disease without esophagitis (principal); F11.20 Opioid dependence, uncomplicated; F19.20 Other psychoactive substance dependence, uncomplicated; R51.9 Headache, unspecified

== ENCOUNTER → 2024-11-10 10:20 | Outpatient (BNVA) | payer OTHER, SELFPAY | PROVIDERS: PCP Internal Medicine | DX: K21.9 Gastro-esophageal reflux disease without esophagitis (principal); F11.20 Opioid dependence, uncomplicated; F19.20 Other psychoactive substance dependence, uncomplicated; R51.9 Headache, unspecified | CPT/HCPCS: 96127; 99212 ==

== ENCOUNTER 2025-02-07 08:52 | Outpatient (REF) | payer OTHER, SELFPAY ==
--- NOTE | ~2025-02-07 | XR_ITS ---
EXAMINATION: XR KNEE 3 VIEWS RIGHT HISTORY: M17.11 - Unilateral primary osteoarthritis, right knee COMPARISON: There are no prior studies available for comparison. FINDINGS: Standing AP views of both knees and additional lateral and sunrise patellar views of the right knee are submitted. Osseous mineralization is normal. There is no fracture or dislocation. The joint spaces are preserved. There is a small joint effusion. XR/XR knee RT 3V IMPRESSION: Small joint effusion. Otherwise unremarkable examination of the right knee. Electronically signed by: Shiva Cox MD 02/07/2025 11:08 AM EDT
== END 2025-02-07 08:53 | disposition home or self-care (01) ==
LOC: HO.HOSX 08:52
PROVIDERS: Visit Provider Physician Assistant
DX: M23.91 Unspecified internal derangement of right knee (principal); M17.11 Unilateral primary osteoarthritis, right knee
CPT/HCPCS: 73562; 99202

== ENCOUNTER 2025-02-07 10:42 | Outpatient (AMB) | payer OTHER, SELFPAY ==
[2025-02-07 10:57] VITALS: BMI 29.1
--- NOTE | 2025-02-07 10:57 | A.OFFVIS_ITS ---
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 Pt states he was playing basketball and went to plant his foot and his knee went inward. Pt states he was not able to walk for 3 days after the injury. Pt states he is now able to walk on it and the pain has subsided except when he is walking longer distances. 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 He states he planted the foot and felt it hyperextend. He states after the fact, he felt a pop. He was unable to WB after the injury. Two days later he was able to weight bear. He states there was some swelling. Currently he is avoiding stairs due to feeling discomfort. He states yesterday he stepped in a hole in the paenemtn his knee gave out. No h/o knee injuries. [facility] Medical History Polysubstance dependence including opioid type drug, continuous use Surgical History Finger fracture, right Social History Housing: House Alcohol intake: current Alcohol intake frequency: a few times a month Patient Tobacco Use Status: Never used Tobacco Tobacco use type: Cigarette e-Cigarette/Vaping Use: Never Used Second Hand Smoke Exposure: No Substance Use Type: Crack/Cocaine and Opiates service: No Current occupational status: employed Cognitive needs: No Hearing needs: No Vision needs: No Review of Systems Const All systems reviewed & are unremarkable except as noted in HPI and below Physical Exam Vital Signs: BMI result Body Mass Index 29.1 Const General: cooperative and no acute distress Orientation/consciousness: patient oriented x3 Resp Effort & Inspection: normal respiratory effort and able to speak in complete sentences Cardio Peripheral pulses: Peripheral pulses 2+ throughout Neuro General: patient oriented x3 Extrem Other: Right knee is normal to inspection no joint effusion present. No tenderness over the medial or lateral aspect of the patella. He has full range of motion. There is some discomfort with Arthur's testing on the right when compared to contralateral side. Neurovascularly intact. Results Reviewed Results Reviewed: X-rays of the right knee obtained in the office today show lateralization of the patella Assessment & Plan Assessment & Plan (1) Internal derangement of right knee: Code(s): M23.91 - Unspecified internal derangement of right knee Category: Medical Plan: Patient states he does have a knee brace he received from urgent care that he will continue to use with any type of activity. I do recommend an MRI to further assess the ligamentous structures of the knee given his mechanism of injury. It is unclear whether he had a patellar subluxation versus ACL tear therefore an MRI will be ordered to further assess given his continued instability. Once the scan is complete I will contact him to discuss further options which he is content with. Orders: Orders XR knee RT 3V Today M17.11 - Unilateral primary osteoarthritis, right knee Coding Level of Care Code New Pt Level 3 (23543) Complex EM visit Add On G2211 Diagnoses Internal derangement of right knee M23.91
== END 2025-02-07 11:52 | disposition home or self-care (01) ==
LOC: HO.HOS 10:43
PROVIDERS: Visit Provider Physician Assistant
DX: M23.91 Unspecified internal derangement of right knee (principal)
CPT/HCPCS: 99203

== ENCOUNTER → 2025-02-07 10:45 | Outpatient (BNV) | payer OTHER, SELFPAY | PROVIDERS: Visit Provider Radiology Diagnostic Radiology | DX: M25.461 Effusion, right knee (principal) | CPT/HCPCS: 73562 ==

== ENCOUNTER → 2025-02-20 09:49 | Outpatient (BNV) | payer OTHER, SELFPAY | PROVIDERS: Visit Provider Radiology Diagnostic Radiology | DX: S83.511A Sprain of anterior cruciate ligament of right knee, initial encounter (principal) | CPT/HCPCS: 73721 ==

== ENCOUNTER 2025-02-20 09:52 | Outpatient (REF) | payer OTHER, SELFPAY ==
--- NOTE | ~2025-02-20 | MR_ITS ---
EXAM: MRI LOWER EXTREMITY JOINT, KNEE, right TECHNIQUE: Multiplanar multisequence MR imaging performed through the right knee without contrast. INDICATION: Hyperextension injury 5 weeks ago while playing basketball, limited extension since then with morning pain and swelling PRIOR: X-ray on February 07, 2025 FINDINGS: Menisci: Lateral Meniscus: There is oblique signal in the posterior horn lateral meniscus extending to the tibial surface consistent with a tear. There is also increased signal in the meniscocapsular attachment posteriorly and trace fluid signal between the meniscus and the posterior capsular attachment consistent with a tear. There is also increased signal at the meniscocapsular attachment along the body of the lateral meniscus. There is mild extrusion of the lateral meniscal body. Medial Meniscus: Intact ACL/PCL: ACL is thickened with increased signal and heterogeneity, especially near the femoral attachment. Margins are indistinct which is consistent with a tear. There is 7 mm anterior tibial translation. PCL appears intact. Extensor mechanism: There is a mildly complex joint effusion. There is streaky fluid signal through Hoffa's fat pad. Tendons are intact. MCL/LCL: Superficial MCL is intact. There is increased signal on fluid sensitive sequences within the deep MCL, and_femoral component, at the femoral attachment but there is an adjacent bone bruise. LCL complex is intact. Articular cartilage: Patellofemoral Compartment: Patellar cartilage is intact. Trochlear cartilage is intact. Lateral Compartment: Lateral compartment articular cartilage is intact. Medial Compartment: Medial compartment articular cartilage is intact. Bones/Marrow: There is a bony bridging across the posterior tibial plateau thinning anteriorly through the lateral tibial plateau. There is also focal bone bruise in the lateral femoral condyle near the sulcus of the femoral condyle. There is also focal bone bruise involving the far medial margin of the medial femoral condyle along the mid posterior joint line. Soft tissues: There is a multiloculated small leaking Gonzalez's cyst. There is feathery fluid signal within the soleus muscle as well as popliteus muscle. There is also mild reticulation of the deep adipose soft tissues. MR/MR knee RT wo con IMPRESSION: ACL is torn. There is associated moderate bone bruise lateral femoral condyle and posterior tibial plateau. There is mild anterior tibial translation. There is a horizontal tear involving posterior horn lateral meniscus extending to the tibial surface. There is also partial meniscocapsular separation along the posterior joint line and along the body of the lateral meniscus. There is a grade 2 sprain of the deep superior MCL, at the femoral attachment. There is associated mild bone bruise at the femoral and T6. There is a mildly complex joint effusion and edema/contusion involving Hoffa's fat pad. There is mild grade 1 strain involving soleus and popliteus muscles. Electronically signed by: Koffi Peoples MD 02/20/2025 10:54 AM EDT
== END 2025-02-20 09:53 | disposition home or self-care (01) ==
LOC: HO.MRI 09:52
PROVIDERS: Visit Provider Physician Assistant
DX: M17.11 Unilateral primary osteoarthritis, right knee (principal)
CPT/HCPCS: 73721

== ENCOUNTER 2025-03-05 09:34 | Outpatient (AMB) | payer OTHER, SELFPAY ==
--- NOTE | 2025-03-05 09:36 | MHC.OFFVIS ---
Intake Visit Reasons: OV - Right Knee MRI Review Intake Note: Anuj is a 29 year old male who presents today for a Right Knee MRI Review. He was last seen with Makayla where he reported an injury on 01/18/25. While playing basketball he went to plant the right foot when his knee buckled medially. No PT. Allergies No Known Allergies Allergy (Verified 02/07/25 10:58) HPI HPI OV - Right Knee MRI Review: Details: Anuj is a 29 year old male who presents today for a Right Knee MRI Review. He was last seen with Makayla where he reported an injury on 01/18/25. While playing basketball he went to plant the right foot when his knee buckled medially. He has been unable to continue playing and has been unable to walk comfortably since. His knee he has had [address] while in his backyard. He is active and healthy and into his playing basketball. He would like to continue playing basketball. [facility] Medical History Polysubstance dependence including opioid type drug, continuous use Surgical History Finger fracture, right Social History Housing: House Alcohol intake: current Alcohol intake frequency: a few times a month Patient Tobacco Use Status: Never used Tobacco Tobacco use type: Cigarette e-Cigarette/Vaping Use: Never Used Second Hand Smoke Exposure: No Substance Use Type: Crack/Cocaine and Opiates service: No Current occupational status: employed Cognitive needs: No Hearing needs: No Vision needs: No Physical Exam Extrem Other: Passive range of motion 0-100 MCL intact with mild tenderness over the MCL origin 1+ Arthur's Results Reviewed Results Reviewed: I personally reviewed the MR images. IMPRESSION: ACL is torn. There is associated moderate bone bruise lateral femoral condyle and posterior tibial plateau. There is mild anterior tibial translation. There is a horizontal tear involving posterior horn lateral meniscus extending to the tibial surface. There is also partial meniscocapsular separation along the posterior joint line and along the body of the lateral meniscus. There is a grade 2 sprain of the deep superior MCL, at the femoral attachment. There is associated mild bone bruise at the femoral and T6. There is a mildly complex joint effusion and edema/contusion involving Hoffa's fat pad. There is mild grade 1 strain involving soleus and popliteus muscles. Assessment & Plan Assessment & Plan (1) Right ACL tear: Code(s): S83.511A - Sprain of anterior cruciate ligament of right knee, initial encounter Category: Medical Plan: This is a 29-year-old gentleman who tore his right ACL while playing basketball about 2 months ago. He is active and enjoys playing basketball and I recommend ACL reconstruction with allograft. I discussed this with him. He is not in a position at this moment to undergo surgery given his employment and he is stiff. I recommend rehabilitation for range of motion. I gave him an ACL brace so that he avoids re-injury. I would like to see him back in 6 weeks for [id number] check and then will further discuss surgery. We also discussed his history of substance abuse. He has not been clean for over 3 years. Coding Level of Care Code Est Pt Level 4 (02206) Diagnoses Right ACL tear S83.511A
== END 2025-03-05 10:12 | disposition home or self-care (01) ==
LOC: HO.HOS 09:34
PROVIDERS: Visit Provider Orthopaedic Surgery
DX: S83.511A Sprain of anterior cruciate ligament of right knee, initial encounter (principal)
CPT/HCPCS: 99214

== ENCOUNTER → 2025-03-05 09:34 | Outpatient (BNVA) | payer OTHER, SELFPAY | PROVIDERS: Visit Provider Orthopaedic Surgery | DX: Z71.2 Person consulting for explanation of examination or test findings (principal); S83.511A Sprain of anterior cruciate ligament of right knee, initial encounter | CPT/HCPCS: 99212 ==

== ENCOUNTER 2025-04-17 10:00 | Outpatient (RCR) | payer OTHER, SELFPAY ==
--- NOTE | 2025-03-28 09:36 | MHC.PT.EP ---
[facility] [place] Office [place] Office [place] Office [address] Narcisa Talbot [address] [phone] F: [phone] F: [phone] F: [phone] F: [phone] Physical Therapy Plan of Care Date of Evaluation: 03/28/25 Date of Surgery: n/a Diagnosis: sprain of ACL R knee Assessment: Patient is a 29 year old male presenting to PT with complaints of pain in his R knee. Pt reports onset of pain began December 2024 due to playing basketball. He presents today with impairments in knee ROM, knee strength, hip strength. 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 Pt expresses ocean transportation intermediary goal of reducing pain, and is motivated to work towards this in PT. Clinical presentation today is most consistent with signs and sx associated with R ACL tear and pt will benefit from skilled PT 2 week x 4 weeks to address the following problems and impairments noted upon evaluation: knee ROM, knee strength, hip strength. These problems limit the patient with the following functional activities: ambulating, stair negotiation, ADLs. The prescribed treatment plan of care is medically necessary. Co-morbidities of polysubstance dependence, hx meningitis were identified and taken into considerations of plan of care. Pt was educated on HEP, role of PT, prognosis, POC. Frequency and Duration: The patient will be seen 2 x week x 4 weeks Short Term Goals: Pt will demonstrate R knee ROM equal B in 2 weeks. Pt will demonstrate R knee SLR with no lag in 2 weeks. Pt will demonstrate improved hip MMT strength by 1/3 grade in 2 weeks. Solid Waste Collector Goals: Pt will demonstrate improved LEFI score in 4 weeks by 9 points for improved functional mobility. Pt will demonstrate compliance and good carry over with exercise program to improve post op outcome in 4 weeks. Treatment Plan: Modalities to reduce pain, spasms and effusion. Manual therapy to restore motion and function. Therapeutic exercise to improve strength and flexibility. Neuromuscular re-education for posture and balance. Therapeutic activities to return to functional activities of daily living. Electronically signed by: Bryanna Laguerre, PT, DPT, ATC Please sign and return to therapist. Thank you for your referral.
--- NOTE | 2025-04-25 14:51 | MHC.PT.DC ---
[facility] [address] [place] Office [place] Office [place] Office [address] [phone] F: [phone] F: [phone] F: [phone] F: [phone] Physical Therapy Discharge Report Diagnosis: sprain of ACL R knee Date of Surgery: n/a Date of Evaluation: 03/28/25 Date of Discharge: 04/25/25 Treatments to Date: 4 Cancellations to Date: 0 No Shows to Date: 1 Discharge Status: Physician Discontinued Tx Discharge Summary: Pt received surgery. Status changed so pt d/c per this POC. Pt to need new order and PT eval to return. Electronically signed by: Bryanna Laguerre, PT, DPT, ATC Please sign and return to therapist. Thank you for your referral.
== END 2025-04-25 14:51 | disposition home or self-care (01) ==
LOC: HO.PTCHIC 10:00
PROVIDERS: Visit Provider Orthopaedic Surgery
DX: S83.511D Sprain of anterior cruciate ligament of right knee, subsequent encounter (principal)
CPT/HCPCS: 97110; 97161

== ENCOUNTER 2025-04-19 08:35 | Outpatient (AMB) | payer OTHER, SELFPAY ==
--- NOTE | 2025-04-19 08:37 | MHC.OFFVIS ---
Vital Signs 04/19/25 08:38 Height 5 ft 11 in Weight 209 lb BMI 29.1 Intake Visit Reasons: OV - Right ACL Tear - Rediscuss Surgery Intake Note: Anuj is a 29 year old male who presents today for a follow up of his right knee ACL Tear that occurred in December of this year while playing basketball. At his last visit we recommended ACL Reconstruction with Allograft, but he is unable to have surgery because of employment and stiffness. We recommended that he attend Physical Therapy to improve his ROM and he was given a ACL brace. Today we will re-discuss surgery. Allergies No Known Allergies Allergy (Verified 04/19/25 08:42) HPI HPI OV - Right ACL Tear - Rediscuss Surgery: Details: Anuj is a 29 year old male who presents today for a follow up of his right knee ACL Tear that occurred in December of this year while playing basketball. At his last visit we recommended ACL Reconstruction with Allograft, but he is unable to have surgery because of employment and stiffness. We recommended that he attend Physical Therapy to improve his ROM and he was given a ACL brace. Today we will re-discuss surgery. He has full range of motion and has been feeling well. He has been working in anticipation of the upcoming surgery. [facility] Medical History Polysubstance dependence including opioid type drug, continuous use Surgical History Finger fracture, right Social History Housing: House Alcohol intake: current Alcohol intake frequency: a few times a month Patient Tobacco Use Status: Never used Tobacco Tobacco use type: Cigarette e-Cigarette/Vaping Use: Never Used Second Hand Smoke Exposure: No Substance Use Type: Crack/Cocaine and Opiates service: No Current occupational status: employed Cognitive needs: No Hearing needs: No Vision needs: No Physical Exam Vital Signs: BMI result Body Mass Index 29.1 Const General: cooperative, healthy appearing, no acute distress and well groomed Orientation/consciousness: oriented to person and oriented to place HEENT Head: Yes normal to inspection, Yes normocephalic and Yes atraumatic Eyes General: appearance normal, both eyes and all related structures Alignment and Position: alignment normal Conjunctivae: conjunctivae normal EOM: EOMs intact bilaterally Neck Neck: Yes normal visual inspection and Yes trachea midline Resp Other: No rerpiratory distress Effort & Inspection: normal respiratory effort and able to speak in complete sentences Cardio Other: Palpable radial pulse with no appreciable rythmic abnormalities GI Other: No abdominal distension Back/Spine/Pelvis Cervical Spine: normal cervical lordosis and cervical ROM normal Skin General skin exam: no rashes or lesions noted Neuro General: oriented to person, oriented to place and gait normal Extrem Other: Right knee with 2-130 degrees of motion. Negative Amirah's. 2+ anterior drawer. No pivot shift appreciable. Stable MCL with no evidence of laxity. Trace effusion. Results Reviewed Results Reviewed: I personally reviewed the MR images. 1) ACL is torn. There is associated moderate bone bruise lateral femoral condyle and posterior tibial plateau. There is mild anterior tibial translation. There is a horizontal tear involving posterior horn lateral meniscus extending to the tibial surface. There is also partial meniscocapsular separation along the posterior joint line and along the body of the lateral meniscus. There is a grade 2 sprain of the deep superior MCL, at the femoral attachment. There is associated mild bone bruise at the femoral and T6. There is a mildly complex joint effusion and edema/contusion involving Hoffa's fat pad. There is mild grade 1 strain involving soleus and popliteus muscles. Assessment & Plan Assessment & Plan (1) Right ACL tear: Code(s): S83.511A - Sprain of anterior cruciate ligament of right knee, initial encounter Category: Medical Plan: 29-year-old with right ACL rupture. 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 We had a long discussion regarding treatment options and I recommend right knee ACL reconstruction. I described to him the risks, benefits and alternatives. We discussed allograft versus autograft and given his desire to return to work and his recreational sport play we elected to use a allograft. I discussed the slightly increased risk of rerupture but the decreased recovery time. I also explained the risks of stiffness, infection, need for additional surgery, inability to return to prior level of activity as well as continued pain and arthritis. I also discussed possibility of the need for meniscus repair which I can never rule out until surgery. He understands that this might delay recovery if repair is needed. I answered all of his questions to the best of my abilities. We will proceed forward accordingly. Coding Level of Care Code Est Pt Level 4 (14412) Diagnoses Right ACL tear S83.511A
[2025-04-19 08:38] VITALS: BMI 29.1
== END 2025-04-19 09:33 | disposition home or self-care (01) ==
LOC: HO.HOS 08:36
PROVIDERS: Visit Provider Orthopaedic Surgery
DX: S83.511A Sprain of anterior cruciate ligament of right knee, initial encounter (principal)
CPT/HCPCS: 99214

== ENCOUNTER → 2025-04-19 08:35 | Outpatient (BNVA) | payer OTHER, SELFPAY | PROVIDERS: Visit Provider Orthopaedic Surgery | DX: Z01.818 Encounter for other preprocedural examination (principal); S83.511D Sprain of anterior cruciate ligament of right knee, subsequent encounter | CPT/HCPCS: 99212 ==

== ENCOUNTER 2025-04-25 10:04 | Day surgery (SDC) | payer OTHER, SELFPAY ==
--- NOTE | 2025-04-23 10:02 | P.CONAN_ITS ---
Documented by User: Hiral Zimmerman NP 04/23/25 10:04 HPI - Anesthesia Eval Consult details Narrative: 29yo M for Right ACL Allograft Hx polysub abuse PMFSH Active Problems Active Problems: All Active Problems (Updated 03/05/25 @ 10:05 by Lio Gottlieb MD) Right ACL tear (Acute) Internal derangement of right knee (Acute) Headache (Acute) GERD (gastroesophageal reflux disease) (Acute) Physical exam (Acute) Polysubstance dependence including opioid type drug, continuous use (Acute) Past Medical History Medical History Meningitis Polysubstance dependence including opioid type drug, continuous use Surgical History Surgical History History of testicular surgery Finger fracture, right Social History Social History Housing: House Are you a primary residential caregiver to a significant other at home: No Do you presently have visiting nurse or other home services: No Alcohol intake: current Alcohol intake frequency: a few times a week Patient Tobacco Use Status: Never used Tobacco Tobacco use type: Cigarette e-Cigarette/Vaping Use: Never Used Second Hand Smoke Exposure: No Use of substances other than those prescribed or required for medical reasons: Yes Substance Use Type: Crack/Cocaine and Opiates Substance Use Frequency: Daily Have you been hit, kicked, punched, or otherwise hurt by someone within the past year? If so, by whom?: No Are you DNR?: No Advance Directives: No Advance Directives Information Provided: No Advance Directives on File: No service: No Current occupational status: employed Cognitive needs: No Hearing needs: No Vision needs: No Meds Allergies Allergy/AdvReac Type Severity Reaction Status Date / Time No Known Allergies Allergy Verified 04/19/25 08:42 Assessment and Plan Assessment Anesthesia Assessment: Chart Reviewed Documented by User: Ewa Thayer MD 04/25/25 09:22 PMFSH Past Medical History Medical History Meningitis Polysubstance dependence including opioid type drug, continuous use Family History Family history of problems with anesthesia: No Surgical History Surgical History History of testicular surgery Finger fracture, right History of Problems with Anesthesia: No Social History Social History Housing: House Are you a primary residential caregiver to a significant other at home: No Do you presently have visiting nurse or other home services: No Alcohol intake: current Alcohol intake frequency: a few times a week Patient Tobacco Use Status: Never used Tobacco Tobacco use type: Cigarette e-Cigarette/Vaping Use: Never Used Second Hand Smoke Exposure: No Use of substances other than those prescribed or required for medical reasons: Yes Substance Use Type: Crack/Cocaine and Opiates Substance Use Frequency: Daily Have you been hit, kicked, punched, or otherwise hurt by someone within the past year? If so, by whom?: No Are you DNR?: No Advance Directives: No Advance Directives Information Provided: No Advance Directives on File: No service: No Current occupational status: employed Cognitive needs: No Hearing needs: No Vision needs: No Meds Allergies Allergy/AdvReac Type Severity Reaction Status Date / Time No Known Allergies Allergy Verified 04/19/25 08:42 Exam Airway Mallampati Class: II TM Dist: >3cm Neck ROM: Full Heart: rrr Lungs: cta Assessment and Plan Assessment Anesthesia Assessment: Anesthesia Plan Discussed Final Anesthetic Review Family History of Problems with Anesthesia: No History of Problems with Anesthesia: No NPO: Yes ASA Class: II (per ortho pt sober, no need of tox screen) Final Preanesthetic Review: No Changes in Pt Med Stat, Meds/Allgs Chart Reviewed, Consent Obtained/Reviewed and Anes Risks/Benef Reviewed Patient Risk: Low Procedure Risk: Intermediate Anesthetic Plan Anesthetic Plan: GA, Regional Block and Agree w/ Assess. and Plan Disposition: Standard PACU
[2025-04-23 12:16] VITALS: BP 119/72; PULSE 84; RESP 16; O2SAT 96; BMI 30.1
[2025-04-25 10:12] VITALS: BMI 30.3
[2025-04-25 10:26] VITALS: BP 126/74; PULSE 80; RESP 16; TEMP 36.6; O2SAT 99
[2025-04-25] MEDS: Lactated Ringers 1,000 ML 100 ML IVCONT (10:27)
--- NOTE | 2025-04-25 11:02 | MHC.SHP ---
Pre-Procedural Eval Section A - 24 Hr Update-Section A only Date of Service: 04/25/25 The patient is an INPATIENT: No Changes since office visit: No Cold of Flu in the past 2 weeks, No New Medical Problems, No Changes in Medication and No Patient answered all questions The patient has been examined within 24 hours of the surgical procedure. The History & Physical has been completed within 30 days and I have reviewed it.: Yes Section B - Complete if H&P > 30 days Chief Complaint: Sprain of anterior cruciate ligament of right knee Allergies: Allergies Allergy/AdvReac Type Severity Reaction Status Date / Time No Known Allergies Allergy Verified 04/19/25 08:42 Plan I have reviewed the history and physical and performed a pertinent physical examination on my patient. No changes have occurred unless specified. Time Spent With Patient Time: Total time managing care of this patient today ____ minutes.
--- NOTE | 2025-04-25 12:30 | P.BOP_ITS ---
Brief Operative Note Date of Service: 04/25/25 Pre-op diagnosis: Right ACL tear Post-op diagnosis: same Procedure: Right ACL reconstruction with allograft Implants: Escobar and nephew ACL endobutton, 10x25 tibial PEEK interference screw; 10mm posterior tibial allograft. Surgeon: Lio Gottlieb MD Anesthesia: GLMA and regional Was an Mastercam Programmer used for this Procedure?: Yes Mastercam Programmer: Radha Marmolejo Estimated blood loss (mL): 25 Tourniquet time (min): 55 IV fluids (mL): 1,000 Pathology: none sent Condition: stable Disposition: PACU
--- NOTE | 2025-04-25 12:32 | W.PM.OPN ---
Operative Note Operative Note Date of Service: 04/25/25 Narrative: Date of Service: 04/25/25 Pre-op diagnosis: Right ACL tear Post-op diagnosis: same Procedure: Right ACL reconstruction with allograft Implants: Escobar and nephew ACL endobutton, 10x25 tibial PEEK interference screw; 10mm posterior tibial allograft. Surgeon: Lio Gottlieb MD Anesthesia: GLMA and regional Was an Head Of Academic Technology used for this Procedure?: Yes Head Of Academic Technology: Radha Marmolejo Estimated blood loss (mL): 25 Tourniquet time (min): 55 IV fluids (mL): 1,000 Pathology: none sent Condition: stable Disposition: PACU Procedure in detail: Patient was brought to the operating room placed supine on the arthroscopic table and prepped and draped in standard sterile fashion. A time-out was called to identify proper site proper procedure proper surgeon and IV antibiotics per weight were administered. Under anesthesia he had a +/- pivot shift. I began by exsanguinating the limb and insufflating tourniquet to 300 mm Hg. Then made a standard anterolateral stab incision. The knee was insufflated with water and 30 degree arthroscope was placed. There was grade 0 fibrillations of the patella and the suprapatellar pouch and the gutters were clean. I descended into the medial compartment where I made my far medial portal under direct visualization. There was normal medial compartment. I then examined the notch where there was a + empty wall sign and an intact PCL. I ten entered the lateral portal. The lateral meniscus was stable and there was a very small type 1 lateral root tear. Thie was debrided but was stable and minimal. I then returned to the notch where I debrided the ACL stump and marked the acl footprint with cautery wand. I performed a limited notchplasty and a small bone shaver. I then, through a far AM portal, and a 7mm behind the back guide, drilled a k-wire through the LFC with the knee in 120 deg of flexion. I measured the tunnel as a 33 and then after sizing the allograft on the back table drilled a 25 mm tunnel with a 10 mm reamer. The final 8 mm was drilled with a 4.5 reamer. I then pulled a suture through the femoral tunnel and turned my attention to the tibia. I did examine the femoral tunnel and was satisfied with the posterior wall and its at the anatomic footprint. I placed my tibial drill guide in 55 deg and, through a anteromedial inc just lateral to the tibial tubercle placed a k-wire into the notch exiting just medial to the anterior horn insertion of the lateral meniscus. I then over-reamed with a 10mm reamer. I cleaned the tunnels up with a shaver. On the back table the graft was prepared. It was whip-stitched and doubled and fit through a 10mm aperture. The femoral endobutton was attached and the graft placed on 15lbs of tension for 10 minutes. I then passed the allograft through the tibial tunnel and femoral tunnel and flipped the button. I cycled the knee about 10-15 cycles and then placed a tibial interference screw with the knee in 25deg flexion while holding the graft taught. Once I was satisfied that the interference screw was buried I examined the ACL. The ACL was not impinging and there was a negative pivot shift. I then removed all instrumentation and closed the incisions with nylon. Patient was then placed in sterile dressings and a hinged knee brace. She was then extubated brought recovery room stable condition. There were no known complications.
[2025-04-25 12:39] VITALS: BP 146/85; PULSE 90; RESP 14; TEMP 36.1; O2SAT 100
[2025-04-25 12:44] VITALS: BP 132/89; PULSE 93; RESP 16; O2SAT 96
[2025-04-25 12:49] VITALS: BP 144/86; PULSE 80; RESP 16; O2SAT 97
[2025-04-25 12:54] VITALS: BP 133/90; PULSE 82; RESP 16; O2SAT 95
== END 2025-04-25 14:01 | disposition home or self-care (01) ==
LOC: HO.SSS 10:05
PROVIDERS: Visit Provider Orthopaedic Surgery
PROC: (CPT 27428; principal; 2025-04-25 11:50)
DX: S83.511A Sprain of anterior cruciate ligament of right knee, initial encounter (principal); X58.XXXA Exposure to other specified factors, initial encounter; Y93.67 Activity, basketball; Y92.9 Unspecified place or not applicable; Y99.9 Unspecified external cause status; F19.20 Other psychoactive substance dependence, uncomplicated; F11.20 Opioid dependence, uncomplicated; Z87.81 Personal history of (healed) traumatic fracture
CPT/HCPCS: 29888; C1713; C1762; J0131; J0165; J0665; J0690; J1100; J2004; J2250; J2371; J2405; J2704; J3010

== ENCOUNTER → 2025-04-25 10:04 | Outpatient (BNV) | payer OTHER, SELFPAY | PROVIDERS: Visit Provider Orthopaedic Surgery | DX: S83.511A Sprain of anterior cruciate ligament of right knee, initial encounter (principal) | CPT/HCPCS: 29888 ==

== ENCOUNTER 2025-05-01 12:32 | Outpatient (REF) | payer OTHER, SELFPAY | END 2025-05-01 12:33 | disposition home or self-care (01) | LOC: HO.HOSX 12:32 | PROVIDERS: Visit Provider Physician Assistant | DX: Z13.89 Encounter for screening for other disorder (principal) ==

== ENCOUNTER 2025-05-03 | Outpatient (REF) | payer OTHER, SELFPAY ==
--- NOTE | ~2025-05-03 | XR_ITS ---
EXAMINATION: XR KNEE, RIGHT CLINICAL INFORMATION: M25.569 - Pain in unspecified knee COMPARISON: February 07, 2025. TECHNIQUE: Single AP view of the right knee. FINDINGS: Limited examination demonstrated the post surgical changes related to ACL repair. There is joint space narrowing medial compartment. No gross chondrocalcinosis. No acute cortical disruption or gross malalignment between on the AP projection. XR/XR knee RT 1V IMPRESSION: Status post ACL repair. Electronically signed by: Jeison Ann MD 05/03/2025 10:01 AM [facility]REED
== END 2025-05-03 23:59 | disposition home or self-care (01) ==
LOC: HO.HOSX
PROVIDERS: Visit Provider Physician Assistant
DX: Z13.89 Encounter for screening for other disorder (principal)

== ENCOUNTER 2025-05-03 09:28 | Outpatient (AMB) | payer OTHER, SELFPAY ==
--- NOTE | 2025-05-03 09:37 | MHC.OFFVIS ---
Intake Visit Reasons: PO RT ACL reconstruction 04/25/25 NE Intake Note: Anuj is a 29 year old male who presents today without crutches for a post op appointment status post RT ACL reconstruction 04/25/25 NE. Patient reports he has been putting some weight his knee but not full weight. He state that he is feeling better today. Allergies No Known Allergies Allergy (Verified 05/03/25 09:40) HPI HPI PO RT ACL reconstruction 04/25/25 NE: Details: Mr. Abarca this is a 29-year-old male who presents to the office today status post right knee ACL reconstruction performed on 04/25/[address] Gottlieb. He reports in the ACL brace positioned appropriately. However, he is not using the crutches to assist with ambulation. He reports pain has been managed. He does not have an appointment yet with physical therapy. No additional complaints. [facility] Medical History Meningitis Polysubstance dependence including opioid type drug, continuous use Surgical History History of testicular surgery Finger fracture, right Social History Housing: House Are you a primary healthcare consulting manager to a significant other at home: No Do you presently have visiting nurse or other home services: No Alcohol intake: current Alcohol intake frequency: a few times a week Patient Tobacco Use Status: Never used Tobacco Tobacco use type: Cigarette e-Cigarette/Vaping Use: Never Used Second Hand Smoke Exposure: No Substance Use Type: Crack/Cocaine and Opiates service: No Current occupational status: employed Cognitive needs: No Hearing needs: No Vision needs: No Review of Systems Const All systems reviewed & are unremarkable except as noted in HPI and below Physical Exam Const General: cooperative, healthy appearing and no acute distress Resp Effort & Inspection: normal respiratory effort and able to speak in complete sentences Extrem Other: Right knee incision sites are clean dry and intact. No surrounding erythema or drainage no signs of infection. Mild effusion. NVI. Psych Appearance: grossly normal Mental Status: mental status grossly normal Attitude: cooperative Assessment & Plan Assessment & Plan (1) S/P ACL reconstruction: Code(s): Z98.890 - Other specified postprocedural states Category: Surgical Plan Mr. Abarca this is a 29-year-old male who presents to the office today status post right knee ACL reconstruction performed on 04/25/[address] Gottlieb. He reports in the ACL brace positioned appropriately. However, he is not using the crutches to assist with ambulation. He reports pain has been managed. He does not have an appointment yet with physical therapy. No additional complaints. While in the office today sutures removed and Steri-Strips were applied. Patient was placed back into the ACL brace. Patient was encouraged to reach back out to physical therapy to begin physical therapy as soon as possible. An order has already been placed in the patient's chart for this. He will follow up in [address] Gottlieb, sooner if needed. X-rays of the right knee which were obtained while in the office today and were reviewed by me, Radha Marmolejo PA-C, revealed intact ACL Endobutton positioned appropriately along the lateral femoral condyle. Orders: Orders XR knee RT 1V Today M25.569 - Pain in unspecified knee Coding Level of Care Code Global (48781) Diagnoses S/P ACL reconstruction Z98.890
== END 2025-05-03 09:52 | disposition home or self-care (01) ==
LOC: HO.HOS 09:28
PROVIDERS: Visit Provider Physician Assistant
DX: Z98.890 Other specified postprocedural states (principal)
CPT/HCPCS: 99024

== ENCOUNTER → 2025-05-03 09:28 | Outpatient (BNVA) | payer OTHER, SELFPAY | PROVIDERS: Visit Provider Physician Assistant | DX: Z48.02 Encounter for removal of sutures (principal); M25.561 Pain in right knee | CPT/HCPCS: 99212 ==

== ENCOUNTER → 2025-05-03 09:30 | Outpatient (BNV) | payer OTHER, SELFPAY | PROVIDERS: Visit Provider Radiology Diagnostic Radiology | DX: M25.561 Pain in right knee (principal) | CPT/HCPCS: 73560 ==

== ENCOUNTER 2025-05-31 09:58 | Outpatient (AMB) | payer OTHER, SELFPAY ==
--- NOTE | 2025-05-31 10:03 | MHC.OFFVIS ---
Intake Visit Reasons: PO-RT ACL reconstruction 04/25/25 NE Intake Note: Anuj is a 29 year old male who presents today for a post operative appointment about 5 weeks s/p Right ACL Reconstruction 04/25/25. At his first post operative appointment he presented without crutches. He is working with [facility]. Allergies No Known Allergies Allergy (Verified 05/03/25 09:40) HPI HPI PO-RT ACL reconstruction 04/25/25 NE: Details: Anuj is doing very well 6 weeks status post right PCL. He has taken off his brace in his walking comfortably. He is attending PT. He has no pain. [facility] Medical History Meningitis Polysubstance dependence including opioid type drug, continuous use Surgical History History of testicular surgery Finger fracture, right Social History Housing: House Are you a primary rn intensive care unit to a significant other at home: No Do you presently have visiting nurse or other home services: No Alcohol intake: current Alcohol intake frequency: a few times a week Patient Tobacco Use Status: Never used Tobacco Tobacco use type: Cigarette e-Cigarette/Vaping Use: Never Used Second Hand Smoke Exposure: No Substance Use Type: Crack/Cocaine and Opiates service: No Current occupational status: employed Cognitive needs: No Hearing needs: No Vision needs: No Physical Exam Exam Exam: 0-125 degrees of motion. Mild effusion. Stable Arthur's. No pain with range of motion. Can straight leg raise comfortably. Assessment & Plan Assessment & Plan (1) S/P ACL reconstruction: Code(s): Z98.890 - Other specified postprocedural states Category: Surgical Plan: Doing very well status post ACL reconstruction. Up in 6 weeks. Continue PT. Continue to be careful protecting graft as well as strengthening surrounding musculature. Coding Level of Care Code Global (22615) Diagnoses S/P ACL reconstruction Z98.890
== END 2025-05-31 10:41 | disposition home or self-care (01) ==
LOC: HO.HOS 09:58
PROVIDERS: Visit Provider Orthopaedic Surgery
DX: Z98.890 Other specified postprocedural states (principal)
CPT/HCPCS: 99024

== ENCOUNTER → 2025-05-31 09:58 | Outpatient (BNVA) | payer OTHER, SELFPAY | PROVIDERS: Visit Provider Orthopaedic Surgery | DX: Z47.89 Encounter for other orthopedic aftercare (principal); Z98.890 Other specified postprocedural states | CPT/HCPCS: 99212 ==